=== PATIENT | male | born 1955 | race Caucasian/White ===

== ENCOUNTER → 2020-04-19 06:18 | Outpatient (CLI) | payer MEDICARE, MEDICAID, SELFPAY ==
--- NOTE | 2020-04-19 13:06 | STRESSREP ---
Stress Test Report Exercise myocardial perfusion stress test. 64-year-old male with a history of chest pain. Stress protocol: Resting EKG demonstrates normal sinus rhythm with a rate of 61 bpm normal intervals are noted resting blood pressure is 148/82 mmHg. The patient exercised according to regular Solomon protocol for 7 minutes and 38 seconds. The maximum heart rate attained was 153 bpm which was 96% of max impacted heart rate the maximum workload was 9.5 metabolic equivalents. Patient maintained sinus rhythm throughout the recording. At rest there were no ST or T wave changes noted suggest ischemia peak exercise upsloping ST changes only were noted with no meet the criteria for ischemia. No clinical angina was noted. The test was terminated due to leg discomfort and the target heart rate being achieved. The resting blood pressure was 148/82 with a peak blood pressure 180/102 mmHg. No clinical angina was noted. Myocardial perfusion protocol. 11.7 mCi of technetium 99m sestamibi was injected at rest. The patient exercised according to regular Solomon protocol for 7-1/2 minutes at peak exercise 33.1 mCi of technetium 99m sestamibi was injected stress images were obtained stress and rest images were reconstructed and compared in the short axis vertical long horizontal long axis. Gated images were also obtained Perfusion SPECT analysis: Review of the stress images demonstrate normal uptake of tracer noted in all areas of the myocardium the resting images similar demonstrate normal uptake of tracer noted in all areas of the myocardium. No areas of reversibility are noted suggest ischemia no previous infarct is noted. Gated SPECT analysis: The gated ejection fraction is 73%. Conclusion: Normal exercise myocardial perfusion stress test at a moderate to high workload. Preserved ejection fraction.
== END ==
PROVIDERS: PCP Internal Medicine
DX: I25.10 Atherosclerotic heart disease of native coronary artery without angina pectoris (principal); I25.84 Coronary atherosclerosis due to calcified coronary lesion; Z13.6 Encounter for screening for cardiovascular disorders; R06.02 Shortness of breath
CPT/HCPCS: 78452; 93017; A9500; A4216

== ENCOUNTER → 2022-09-01 | Outpatient (CLI) | payer MEDICARE, MEDICAID, SELFPAY ==
[2022-09-01 12:43] LABS: AST(SGOT) 15 U/L (15-37); Alanine Aminotransfer ALT/SGPT 33 U/L (16-61); Albumin, Serum 3.9 g/dL (3.2-5.0); Alkaline Phosphatase 69 U/L (45-117); Bilirubin, Direct 0.12 mg/dL (0.00-0.30); Cholesterol 240 mg/dL (200); Globulin 3.6 g/dL (2.2-4.2); High Density Lipoprotein 35 mg/dL; Protein, Total 7.5 g/dL (6.4-8.2); Triglycerides 243 mg/dL; Very Low Density Lipoprotein 49 mg/dL (5-40)
== END | disposition home or self-care (01) ==
LOC: LAB 11:15
PROVIDERS: PCP Internal Medicine; Visit Provider Internal Medicine Cardiovascular Disease
DX: I71.40 Abdominal aortic aneurysm, without rupture, unspecified (principal); E78.5 Hyperlipidemia, unspecified
CPT/HCPCS: 36415; 80061; 80076

== ENCOUNTER → 2022-09-16 | Outpatient (CLI) | payer MEDICARE, MEDICAID, SELFPAY ==
--- NOTE | 2022-09-16 09:44 | STE_ITS ---
Reason For Study: CAD/ASHD Stress Results Protocol: Solomon Protocol Maximum Predicted HR: 156 bpm Target HR: 133 bpm % Maximum Predicted HR: 92 % DurationHeart Rate Stage (mm:ss) (bpm) BP Comment BASELINE 62 124/72 STAGE 1 3:00 97 162/82 STAGE 2 3:00 126 172/84 STAGE 3 2:00 144 174/90KNEE DISCOMFORT, (BAD KNEES) RECOVERY 83 156/86 Stress Duration: 8:00 mm:ss Maximum Stress HR: 144 bpm Baseline Echocardiogram Findings Stress Echo Wall motion Data Resting WM Intermediate WM Stress WM ECHO/Stress Test Echo w/o Contrast Interpretation Summary Exercise stress echo. 66-year-old man with a history of coronary artery disease. Stress protocol: Resting EKG demonstrates sinus rhythm with a rate of 61 bpm normal intervals ar e noted resting blood pressure is 124/72. The patient exercised according to regular Solomon protocol f or total duration of 8 minutes completing 2 minutes into stage III of the Solomon protocol. The maximu m heart rate attained was 176 bpm which was 112% of maximum predicted heart rate the maximum workload was 10.1 metabolic equivalents. At rest there were no ST or T wave changes noted to suggest ischem ia. At peak exercise there was approximately 1.[address] depression noted with exertion. No chest pain was noted the test was terminated due to knee pain. The peak blood pressure was 178 /90 mmHg. Stress echocardiogram. Resting echocardiographic evaluation demonstrated an eje ction fraction of 60% with no wall motion abnormalities. At peak exercise there was thickening of all hernandez reduction of the ventricular cavity size and peaking of ejection fraction of 70%. No wall mo tion abnormalities were noted. Conclusion: Normal exercise stress echo with no EKG or echocardiographic criteria for ische maddy at a moderate workload to high workload. Good functional capacity. Ordering Physician: Patrick Mckinley Referring Physician: Patrick Mckinley Performed By: Jessica Lang, RDCS, RVT
== END | disposition home or self-care (01) ==
LOC: CVS 09:41
PROVIDERS: PCP Internal Medicine; Referring Provider Internal Medicine Cardiovascular Disease; Visit Provider Internal Medicine Cardiovascular Disease
DX: I25.10 Atherosclerotic heart disease of native coronary artery without angina pectoris (principal); I25.84 Coronary atherosclerosis due to calcified coronary lesion
CPT/HCPCS: 93017; 93350

== ENCOUNTER 2023-05-10 06:46 | Outpatient (CLI) | payer MEDICARE, MEDICAID, SELFPAY ==
[2023-05-10 07:39] LABS: Absolute Lymphocyte Count 3.38 X10^3/uL (0.83-4.51); Absolute Neutrophil Count 4.4 X10^3/uL (2.0-7.7); Basophil# 0.08 X10^3/uL; Basophil% 0.9 % (0-1); Eosinophil# 0.11 X10^3/uL; Eosinophils% 1.3 % (0-5); Hematocrit 48.6 % (40-54); Hemoglobin 15.8 g/dL (13.0-16.5); Lymphocyte # 3.38 X10^3/ul (0.83-4.51); Lymphocyte % 39.6 % (19-41); Mean Corp Hgb Conc 32.5 g/dL (32-36); Mean Corpuscular Hgb 29.8 pg (27.0-32.0); Mean Corpuscular Volume 91.5 fL (80-94); Mean Platelet Vol. 11.1 fl (6.2-12.0); Monocyte# 0.58 X10^3/uL; Monocyte% 6.8 % (0-10); NRBC Flagged by Analyzer 0 % (0-5); Neutrophil # 4.36 X10^3/uL (2.7-7.7); Neutrophil % 51.2 % (47-70); Platelet Count 194 K/mm3 (150-450); RBC Distribution Width CV 12.5 % (11.6-14.6); RBC Distribution Width SD 42.1 fl (35.1-43.9); Red Blood Count 5.31 M/mm3 (4.6-6.2); White Blood Count 8.5 K/mm3 (4.4-11.0)
[2023-05-10 08:19] LABS: AST(SGOT) 20 U/L (15-37); Alanine Aminotransfer ALT/SGPT 30 U/L (16-61); Alkaline Phosphatase 75 U/L (45-117); Anion Gap 7 (5-15); BUN 16 mg/dL (7-18); BUN/Creat Ratio 13.4 RATIO (10-20); Bilirubin, Direct 0.18 mg/dL (0.00-0.30); Calcium,Total 9.3 mg/dL (8.5-10.1); Chloride 105 mmol/L (98-107); Cholesterol 273 mg/dL (200); Creatinine, Serum 1.19 mg/dL (0.70-1.30); EST Glomerular Filtration Rate 65 mL/min (>60); Est Glom Filt Rate - Afr Amer 79 mL/min (>60); Globulin 4.2 g/dL (2.2-4.2); Glucose 112 mg/dL (74-106); High Density Lipoprotein 41 mg/dL; PSA,Total - Annual Screen 0.37 ng/mL (0.00-4.00); Potassium 4.1 mmol/L (3.5-5.1); Protein, Total 8.2 g/dL (6.4-8.2); Sodium Level 139 mmol/L (136-145); Thyroid Stim Hormone (TSH) 3.51 uIU/mL (0.358-3.74); Triglycerides 178 mg/dL; Very Low Density Lipoprotein 36 mg/dL (5-40)
[2023-05-10 08:54] LABS: Vitamin D,25 Hydroxy 32.9 ng/mL
== END 2023-05-10 23:59 | disposition home or self-care (01) ==
LOC: LAB 06:51
PROVIDERS: PCP Internal Medicine; Referring Provider Internal Medicine; Visit Provider Internal Medicine
DX: E78.5 Hyperlipidemia, unspecified (principal); I71.40 Abdominal aortic aneurysm, without rupture, unspecified; Z12.5 Encounter for screening for malignant neoplasm of prostate; I65.29 Occlusion and stenosis of unspecified carotid artery; I25.10 Atherosclerotic heart disease of native coronary artery without angina pectoris; I25.84 Coronary atherosclerosis due to calcified coronary lesion; I10 Essential (primary) hypertension; E55.9 Vitamin D deficiency, unspecified
CPT/HCPCS: 36415; 80053; 80061; 82248; 82306; 84153; 84443; 85025; G0103

== ENCOUNTER → 2023-10-22 | Outpatient (CLI) | payer MEDICARE, MEDICAID, SELFPAY ==
[2023-10-22 08:50] LABS: AST(SGOT) 22 U/L (15-37); Alanine Aminotransfer ALT/SGPT 25 U/L (16-61); Albumin, Serum 3.7 g/dL (3.2-5.0); Alkaline Phosphatase 62 U/L (45-117); Bilirubin, Direct 0.13 mg/dL (0.00-0.30); Cholesterol 146 mg/dL (200); Globulin 3.6 g/dL (2.2-4.2); High Density Lipoprotein 36 mg/dL; Protein, Total 7.3 g/dL (6.4-8.2); Triglycerides 109 mg/dL; Very Low Density Lipoprotein 22 mg/dL (5-40)
== END | disposition home or self-care (01) ==
LOC: LAB 07:42
PROVIDERS: PCP Internal Medicine; Referring Provider Physician Assistant Medical; Visit Provider Physician Assistant Medical
DX: I65.29 Occlusion and stenosis of unspecified carotid artery (principal); E78.5 Hyperlipidemia, unspecified; I25.10 Atherosclerotic heart disease of native coronary artery without angina pectoris; I25.84 Coronary atherosclerosis due to calcified coronary lesion
CPT/HCPCS: 36415; 80061; 80076

== ENCOUNTER → 2024-06-16 | Outpatient (CLI) | payer MEDICARE, MEDICAID, SELFPAY ==
--- NOTE | 2024-06-16 14:06 | STRESSREP_ITS ---
Stress Test Report Exercise myocardial perfusion stress test. 68-year-old man with a history of chest pain Stress protocol: Resting EKG demonstrates normal sinus rhythm with a rate of 64 bpm resting blood pressure is 132/88 mmHg. The patient exercised according to the regular Solomon protocol for a total duration of 9 minutes attaining a maximum heart rate of 153 bpm which was 99% of maximum predicted heart rate; the maximum workload was 10.1 metabolic equivalents. At rest there were no ST or T wave changes noted to suggest ischemia and at peak exercise upsloping ST changes only were noted which did not meet the criteria for ischemia. No clinical angina was noted the test was terminated due to the target heart rate being achieved/fatigue. The peak b lood pressure was 182/94 mmHg. Rate-pressure product was 25,000. Myocardial perfusion protocol. 13.2 mCi of technetium 99m sestamibi was injected at rest. The patient exercised according to regular Solomon protocol for total duration of 9 minutes and at peak exercise 42.3 mCi of technetium 99m sestamibi was injected stress images were obtained stress and rest images were reconstructed in comparing the short axis vertical long and horizontal long axis. Gated images were also obtained. Perfusion SPECT analysis: Review of the stress images demonstrate normal uptake of tracer noted in all areas of the myocardium. The resting images similarly demonstrate normal uptake of tracer noted in all areas of the myocardium. No areas of reversibility are noted to suggest ischemia no previous infarct was noted. Gated SPECT analysis: The gated ejection fraction is 67%. Conclusion: Normal exercise myocardial perfusion stress test at a high workload Preserved ejection fraction.
== END | disposition home or self-care (01) ==
LOC: CVS 06:27
PROVIDERS: PCP Internal Medicine; Referring Provider Nurse Practitioner Family; Visit Provider Nurse Practitioner Family
DX: R07.9 Chest pain, unspecified (principal); I65.29 Occlusion and stenosis of unspecified carotid artery; I25.10 Atherosclerotic heart disease of native coronary artery without angina pectoris; I25.84 Coronary atherosclerosis due to calcified coronary lesion; I10 Essential (primary) hypertension; E78.2 Mixed hyperlipidemia
CPT/HCPCS: 78452; 93017; A9500; A4216

== ENCOUNTER → 2024-06-26 | Outpatient (CLI) | payer MEDICARE, MEDICAID, SELFPAY ==
[2024-06-26 10:26] LABS: Absolute Lymphocyte Count 3.09 X10^3/uL (0.83-4.51); Absolute Neutrophil Count 3.9 X10^3/uL (2.0-7.7); Basophil# 0.06 X10^3/uL; Basophil% 0.8 % (0-1); Eosinophil# 0.07 X10^3/uL; Eosinophils% 0.9 % (0-5); Hematocrit 48.1 % (40-54); Hemoglobin 16.3 g/dL (13.0-16.5); Lymphocyte # 3.09 X10^3/ul (0.83-4.51); Lymphocyte % 40.6 % (19-41); Mean Corp Hgb Conc 33.9 g/dL (32-36); Mean Corpuscular Hgb 30.2 pg (27.0-32.0); Mean Corpuscular Volume 89.1 fL (80-94); Mean Platelet Vol. 10.8 fl (6.2-12.0); Monocyte# 0.52 X10^3/uL; Monocyte% 6.8 % (0-10); NRBC Flagged by Analyzer 0 % (0-5); Neutrophil # 3.86 X10^3/uL (2.7-7.7); Neutrophil % 50.8 % (47-70); Platelet Count 183 K/mm3 (150-450); RBC Distribution Width CV 12.3 % (11.6-14.6); RBC Distribution Width SD 40.4 fl (35.1-43.9); White Blood Count 7.6 K/mm3 (4.4-11.0)
[2024-06-26 11:33] LABS: Vitamin D,25 Hydroxy 25.7 ng/mL
[2024-06-26 11:36] LABS: ALB/GLOB Ratio 1.1 RATIO (0.9-2.4); AST(SGOT) 19 U/L (15-37); Alanine Aminotransfer ALT/SGPT 32 U/L (16-61); Albumin, Serum 4.1 g/dL (3.2-5.0); Alkaline Phosphatase 66 U/L (45-117); Anion Gap 4 (5-15); BUN 19 mg/dL (7-18); BUN/Creat Ratio 18.4 RATIO (10-20); Calcium,Total 9.2 mg/dL (8.5-10.1); Chloride 108 mmol/L (98-107); Cholesterol 279 mg/dL (200); Creatinine, Serum 1.03 mg/dL (0.70-1.30); EST Glomerular Filtration Rate 77 mL/min (>60); Est Glom Filt Rate - Afr Amer 93 mL/min (>60); Globulin 3.8 g/dL (2.2-4.2); Glucose 103 mg/dL (74-106); High Density Lipoprotein 39 mg/dL; Magnesium 2.2 mg/dL (1.6-2.6); PSA,Total - Annual Screen 0.38 ng/mL (0.00-4.00); Potassium 4.5 mmol/L (3.5-5.1); Protein, Total 7.9 g/dL (6.4-8.2); Sodium Level 136 mmol/L (136-145); Triglycerides 165 mg/dL; Very Low Density Lipoprotein 33 mg/dL (5-40)
== END | disposition home or self-care (01) ==
PROVIDERS: PCP Internal Medicine; Referring Provider Internal Medicine; Visit Provider Internal Medicine
DX: Z12.5 Encounter for screening for malignant neoplasm of prostate (principal); M17.0 Bilateral primary osteoarthritis of knee; I65.29 Occlusion and stenosis of unspecified carotid artery; I25.10 Atherosclerotic heart disease of native coronary artery without angina pectoris; I25.84 Coronary atherosclerosis due to calcified coronary lesion; I10 Essential (primary) hypertension; I71.43 Infrarenal abdominal aortic aneurysm, without rupture; E78.2 Mixed hyperlipidemia; E55.9 Vitamin D deficiency, unspecified
CPT/HCPCS: 36415; 80053; 80061; 82306; 83735; 84153; 84443; 85025; G0103

== ENCOUNTER → 2024-12-05 | Outpatient (CLI) | payer MEDICARE, MEDICAID, SELFPAY ==
--- NOTE | 2024-12-05 08:56 | ECHOD_ITS ---
Reason For Study Reason For Study: CAD/ASHD Procedure This was a 2D Doppler, Color Flow transthoracic echocardiogram. Exam performed in department. Left Ventricle Normal LV size. Left ventricular systolic function is normal. The left ventricular ejection fraction is 65 %. No regional wall motion abnormalities noted. Right Ventricle Normal RV size. Normal systolic function. Atria Normal left atrium. Normal right atrium. Mitral Valve Normal mitral valve. Tricuspid Valve Normal tricuspid valve. Mild tricuspid valve insufficiency. Pulmonary artery systolic pressure is 20 mmHg. Aortic Valve Normal aortic valve. Pulmonic Valve Normal pulmonic valve. Great Vessels Normal aortic root. The pulmonary artery is normal size. Normal inferior vena cava. Pericardium/Pleural No pericardial effusion. MMode/2D Measurements & Calculations LVIDd: 4.6 cm IVSd: 1.2 cm Ao root diam: 3.4 cm LVIDs: 2.9 cm LVPWd: 1.1 cm RVDd: 3.6 cm FS: 36.3 % LAV(MOD-bp): 42.7 ml LVAd ap4: 26.6 cm2 SV(MOD-sp4): 47.1 ml LAV(MOD-bp) Indexed: 20.5 ml/m2 LVLd ap4: 7.8 cm SI(MOD-sp4): 22.6 ml/m2 LAV(MOD-sp2): 45.8 ml EDV(MOD-sp4): 73.4 ml LAV(MOD-sp4): 38.2 ml EDV(sp4-el): 76.8 ml LVAs ap4: 14.6 cm2 LVLs ap4: 6.7 cm ESV(MOD-sp4): 26.3 ml ESV(sp4-el): 26.9 ml EF(MOD-sp4): 64.1 % EF(sp4-el): 65.0 % SV(sp4-el): 50.0 ml LA A4 area: 15.7 cm2 LA dimension(2D): 4.2 cm RA A4 area: 16.8 cm2 TAPSE: 2.0 cm Time Measurements MV dec time: 0.25 sec Doppler Measurements & Calculations MV E max robert: 79.4 cm/sec Lat Peak E' Rboert: 10.6 cm/sec Med Peak E' Robert: 6.9 cm/sec MV A max robert: 79.4 cm/sec E/E' lat: 7.5 E/E' med: 11.5 MV E/A: 1.0 MV V2 max: 96.0 cm/sec MV P1/2t max robert: 96.5 cm/sec Ao V2 max: 152.9 cm/sec MV max P.7 mmHg MV P1/2t: 99.4 msec Ao max P.4 mmHg MV V2 mean: 49.5 cm/sec Ao V2 mean: 98.9 cm/sec MV mean P.2 mmHg MV dec slope: 284.5 cm/sec2 Ao mean P.6 mmHg MV V2 VTI: 36.1 cm MVA(P1/2t): 2.2 cm2 Ao V2 VTI: 34.2 cm AV (velocity ratio): 0.83 LV V1 max: 132.2 cm/sec PA V2 max: 120.7 cm/sec TR max robert: 194.7 cm/sec LV V1 max P.0 mmHg PA V2 mean: 80.4 cm/sec TR max P.2 mmHg LV V1 mean P.7 mmHg LV V1 mean: 89.5 cm/sec LV V1 VTI: 28.4 cm ECHO/Echo Complete Interpretation Summary Normal LV size. Left ventricular systolic function is normal. The left ventricular ejection fraction is 65 %. Structurally normal valves. Ordering Physician: Patrick Mckinley Referring Physician: Patrick Mckinley Performed By: Myles Stone RCS
== END | disposition home or self-care (01) ==
LOC: CVS 08:50
PROVIDERS: PCP Internal Medicine; Referring Provider Internal Medicine Cardiovascular Disease; Visit Provider Internal Medicine Cardiovascular Disease
DX: I25.10 Atherosclerotic heart disease of native coronary artery without angina pectoris (principal)
CPT/HCPCS: 93306

== ENCOUNTER 2025-05-27 20:52 | Emergency (ER) | payer MEDICARE, MEDICAID, SELFPAY ==
[2025-05-27 20:53] VITALS: BP 151/93; PULSE 64; RESP 18; TEMP 36.3; O2SAT 99; BMI 27.5
--- NOTE | 2025-05-27 21:21 | ED.VIS.BACK ---
HPI History of Present Illness Chief Complaint: Back Detail of Chief Complaint: Back pain Informant: patient Onset/Context/Timing Current Severity: 12/28 Narrative Narrative: Patient presents with back pain that started yesterday initially when he threw some water into the back of his pickup truck. [place] a twinge in his back. Today he is having increased pain in his low back. He is worried because he had a AAA repair 10 years ago. He wants to make sure his aneurysm is okay. Patient denies any pain rating down the legs. He does have history of sciatica and some chronic back pain issues. Denies urinary symptoms. No history of kidney stones [facility] Medical History (Updated 05/27/25 @ 23:[address] Fawad Ceballos, DO) Marijuana use Peptic ulcer hemorrhagic (1979) Anxiety and depression Coronary artery calcification Tobacco abuse (2011) Osteoarthritis Tubular adenoma of colon Essential (primary) hypertension Hyperlipidemia Abdominal aortic aneurysm (AAA) Home Medications ?Medication ?Instructions ?Recorded ?Last Taken ?Type aspirin 81 mg tablet,delayed 81 mg PO DAILY 07/30/20 Unknown History release cholecalciferol (vitamin D3) 50 50 mcg PO QDAY 07/03/24 Unknown History mcg (2,000 unit) capsule sildenafil 50 mg tablet 50 mg PO DAILY PRN sexual activity 09/13/24 Unknown Rx #30 tabs ezetimibe 10 mg tablet (Zetia) 10 mg PO QDAY #90 tabs 10/26/24 Unknown Rx losartan 50 mg tablet 50 mg PO QDAY #90 tabs 10/26/24 Unknown Rx cyclobenzaprine 10 mg tablet 10 mg PO TID PRN Muscle Spasm #20 05/27/25 Unknown Rx TABLETS hydrocodone-acetaminophen 5-325mg 1 tab PO Q4H PRN PRN Pain 2 days 05/27/25 Unknown Rx 5mg-325mg #14 TABLETS Allergy/AdvReac Type Severity Reaction Status Date / Time evolocumab (From Repatha AdvReac Intermediate Leg aches Verified 05/27/25 20:55 Pushtronex) (Myalgias) Klonryr-ZLV-XlD Reductase AdvReac myalgia Verified 05/27/25 20:55 Inhibitor (Tdihnii-Gpx-Wuh Reductase Inhibitor) Family History Father COPD (chronic obstructive pulmonary disease) Mother Hypertension Brother CAD (coronary artery disease) CABG x 3 Abdominal aortic aneurysm (AAA) Hypertension Other Heart disease Surgical History History of left heart catheterization (05/2015) History of abdominal aortic aneurysm (AAA) repair (06/18/15) Social History Smoking Status: Former smoker quit date: 09/26/11 pack-years: 75 alcohol intake: current alcohol intake frequency: a few times a week Alcohol type: beer details: 12 beers a week substance use type: former substance user Date of last use: H/O IVDU >30 years ago, marijuana and other details: 7 days a week caffeine: Yes (8) Type: coffee ROS ROS ED Review of Systems ROS Unobtainable: other Constitutional Constitutional ED: Reports lethargy; Denies chills, fever(s), sweats or weight loss Eyes Eyes: Denies blurry vision, change in vision or diplopia ENT ENT ED: Denies rhinorrhea or sore throat Cardiovascular Cardiovascular: Denies chest pain, orthopnea or racing heartbeat Respiratory/Chest Respiratory/Chest: Denies cough, dyspnea, dyspnea on exertion, orthopnea or sputum Gastrointestinal Gastrointestinal: Denies abdominal pain, diarrhea, nausea or vomiting Genitourinary Genitourinary ED: Denies dysuria, hematuria or urinary frequency Musculoskeletal Musculoskeletal: Reports back pain; Denies arthralgias, myalgias or neck pain Integumentary Denies abscess, Abrasions or rash Neurologic Neurologic: Denies headache(s) or weakness Psychiatric Psychiatric: Denies anxiety, depression or suicidal thoughts Endocrine Endocrinology: Denies polydipsia, polyphagia or polyuria Hematologic/Lymphatic Hematologic/Lymphatic: Denies easy bleeding, easy bruising or lymphadenopathy Allergic/Immunologic Allergic/Immunologic ED: Denies mouth swelling, tongue swelling or urticaria EXAM Physical Exam Const Vital Signs: 05/27/25 20:53 05/27/25 22:53 Temperature 97.4 F L Temperature Source Temporal Pulse Rate 64 65 Respiratory Rate 18 16 Blood Pressure 151/93 H 166/84 H Blood Pressure Mean 112 111 Pulse Ox 99 96 Oxygen Delivery Method Room Air Room Air Positive well nourished and well developed General Appearance ED: well developed and NAD HEENT Reports TM's clear and moist mucous membranes normocephalic and atraumatic; Negative for trauma or tenderness Tympanic Membrane ED: Yes TM's clear Eyes PERRL and EOMs intact bilaterally General Eye ED: Negative for pale conjunctiva or scleral icterus Neck no lymphadenopathy, supple and no JVD General: Negative for tenderness Chest Wall inspection of chest normal and palpation of chest normal Chest: Negative for tenderness Resp normal respiratory effort and clear to auscultation bilaterally Effort and Inspection: Negative for respiratory distress or pain with movement Auscultation: Negative for rhonchi, wheezes or diminished lung sounds Cardio regular rate, regular rhythm, S1 normal heart sound, S2 normal heart sound and no murmurs Peripheral Pulses: pulses 2+ throughout GI normal to inspection, nondistended, normoactive bowel sounds, soft to palpation, non-tender, non-distended and no masses Back/Spine no CVA tenderness Back/Spine Narrative: Mild diffuse tenderness palpation over the lumbar paraspinal musculature bilaterally. No significant tenderness in the midline. Negative straight leg raises. Deep tendon reflexes plus 2 out of 4 bilaterally at the patella and Achilles. Normal L5 extension Extremity normal to inspection General Extremety ED: Negative for edema General Extremity: Negative for edema Neuro oriented x3, CN's II-XII intact bilaterally, no sensory deficits noted and gait normal Sensorium / Orientation: awake, alert, oriented to person, oriented to place and oriented to time Motor Exam: strength 5/5 throughout and strength abnormal Psych mental status grossly normal Skin no rashes or lesions noted and no wounds MDM MDM Lab Data Labs: Laboratory Results - last 24 hr 05/27/25 05/27/25 19:25 22:27 WBC 9.5 RBC 4.47 L Hgb 13.7 Hct 40.1 MCV 89.7 MCH 30.6 MCHC 34.2 RDW Std Deviation 41.1 RDW Coeff of Pipe 12.6 Plt Count 181 MPV 10.8 Immature Gran % (Auto) 0.100 Neut % (Auto) 45.5 L Lymph % (Auto) 44.5 H [place] % (Auto) 6.9 Eos % (Auto) 2.5 Baso % (Auto) 0.5 Absolute Neuts (auto) 4.3 Absolute Lymphs (auto) 4.21 Nucleated RBC % 0 Sodium 137 Potassium 4.1 Chloride 104 Carbon Dioxide 23.1 Anion Gap 10 BUN 15 Creatinine 1.05 Estim Creat Clear Calc 74.93 Est GFR (MDRD) Non-Af 78 BUN/Creatinine Ratio 14.1 Glucose 123 H Calcium 9.0 Urine Color Yellow Urine Clarity Clear Urine pH 7.0 Ur Specific [place] 1.005 Urine Protein Negative Urine Glucose (UA) Normal Urine Ketones Negative Urine Occult Blood Negative Urine Nitrite Negative Urine Bilirubin Negative Urine Urobilinogen Normal Ur Leukocyte Esterase Negative Urine RBC 0 SEEN Urine WBC 0 SEEN Ur Squamous Epith Cells 0 SEEN Urine Bacteria 0 SEEN Urine Mucus 0 SEEN Discharge Plan Triage Chief Complaint: Back ED Provider: Fawad Ceballos Dx/Rx/DC Orders Clinical Impression: Back pain Instructions: ED Back Sprain/Strain Prescriptions: New hydrocodone-acetaminophen 5-325 mg tablet 1 tab PO Q4H PRN PRN (Reason: Pain) 2 Days Qty: 14 0RF cyclobenzaprine 10 mg tablet 10 mg PO TID PRN (Reason: Muscle Spasm) Qty: 20 0RF No Action aspirin 81 mg tablet,delayed release (DR/EC) 81 mg PO DAILY losartan 50 mg tablet 50 mg PO QDAY Qty: 90 3RF ezetimibe [Zetia] 10 mg tablet 10 mg PO QDAY Qty: 90 3RF cholecalciferol (vitamin D3) 50 mcg (2,000 unit) capsule 50 mcg PO QDAY sildenafil 50 mg tablet 50 mg PO DAILY PRN (Reason: sexual activity) Qty: 30 1RF Primary Care Provider: Barbara Hall Referrals: Barbara Hall MD [[place] [facility] [place]5 [place] Print Language: Latvian
[2025-05-27 21:32] LABS: Hematocrit 40.1 % (40-54); Hemoglobin 13.7 g/dL (13.0-16.5); Immature Granulocytes Count 0.010 X10^3/uL (0.0-0.0); Mean Corp Hgb Conc 34.2 g/dL (32-36); Mean Corpuscular Volume 89.7 fL (80-94); Mean Platelet Vol. 10.8 fl (6.2-12.0); NRBC Flagged by Analyzer 0 % (0-5); Platelet Count 181 K/mm3 (150-450); RBC Distribution Width CV 12.6 % (11.6-14.6); RBC Distribution Width SD 41.1 fl (35.1-43.9); Red Blood Count 4.47 M/mm3 (4.6-6.2); White Blood Count 9.5 K/mm3 (4.4-11.0)
--- OUTSIDE RECORDS SUMMARY | 2025-05-27 21:35 | XMS RPT_ITS | CCD ---
Author Organization [facility] Care Team Providers Care Waste Oil Pumper Name Role Phone DAVONTE, DR CALLI Rodas Primary Care Unavaila ble DAVONTE, DR CALLI Rodas Attending Unavaila ble CHANA, EMILY Pizarro Consulting Unavailable DAVONTE, DR CALLI Rodas Admitting Unavaila ble PROVIDER, UNKNOWN Consulting Unavailable PROVIDER, UNKNOWN Consulting Unavailable DAVONTE, DR CALLI Rodas Attending Unavaila ble CHANA, EMILY Pizarro Consulting Unavailable DAVONTE, DR CALLI Rodas Admitting Unavaila ble DAVONTE, DR CALLI Rodas Primary Care Unavaila ble PROVIDER, UNKNOWN Consulting Unavailable PROVIDER, UNKNOWN Consulting Unavailable Mikhail Green MD Primary Care Provider SALLY ALMONTE Referring Unav ailable GREEN, MIKHAIL Primary Care Unavailable SALLY ALMONTE Attending Unav ailable GEORGINATANSALLY HERNANDEZ Referring Unav ailable GREEN, MIKHAIL Primary Care Unavailable SALLY ALMONTE Attending Unav ailMikhail Wilson MD Primary Care Provider Mikhail Green MD Primary Care Provider Dr. Mikhail Green Primary Care Provider Dr. Mikhail Green Referring Provider Dr. Patrick Mckinley Attending Provider Paige Granger Attending Provider Unavailable Mikhail Green MD Primary Care Provider Blaise Hall MD Primary Care Provider Dr. Blaise Hall Primary Care Provider Dr. Blaise Hall Attending Provider Dr. Blaise Hall Primary Care Provider Dr. Blaise Hall Attending Provider [phone] Mikhail Green Referring Provider Roof PIT SUPERVISOR, PIT SUPERVISOR-C Shaun Page Attending Provider Isabel LIVINGSTON, Blaise Michaels Primary Care Provider Isabel LIVINGSTON, Blaise Michaels Primary Care Provider Isabel LIVINGSTON, Dr. Jimenez Primary Care Provider Isabel LIVINGSTON, Dr. Jimenez Referring Provider Arlen LIVINGSTON, Dr. Nguyen Attending Provider Arlen LIVINGSTON, Dr. Nguyen Referring Provider [phone] Roberto DELAROSA-Kat Loco Attending Provider Arlen, Patrick Attending Unavailable Isabel, Blaise Referring Unavailable Isabel, Blaise Primary Care Unavailable Isabel, Blaise Primary Care Unavailable Roof PIT SUPERVISOR, Shaun H Attending Unavailable Roof PIT SUPERVISOR, Shaun H Referring Unavailable Isabel, Blaise Primary Care Unavailable Blaise Hall Attending Unavailable IsabelBlaise Referring Unavailable Arlen, Patrick Attending Unavailable Arlen, [place] Referring Unavailable Isabel, Blaise Primary Care Unavailable Isabel, Blaise Primary Care Unavailable Arlen, [place] Attending Unavailable Roof PIT SUPERVISOR, Shaun H Consulting Unavailable Roof PIT SUPERVISOR, Shaun H Referring Unavailable Arlen, Patrick Attending Unavailable Isabel, Blaise Primary Care Unavailable Isabel, Blaise Primary Care Unavailable Kat Mejia NP Attending Unavailable Isabel, Blaise Attending Unavailable Isabel, Blaise Primary Care Unavailable ROJAS KETTY D Referring Unavailable ROJAS, KETTY D Attending Unavailable ISABEL, BLAISE M Primary Care Unavailable ROJAS, KETTY D Referring Unavailable ISABEL, BLAISE M Primary Care Unavailable ROJAS, KETTY D Referring Unavailable ISABEL, BLAISE M Primary Care Unavailable ANILA CARRANZA Attending Unavailable ISABEL, BLAISE M Primary Care Unavailable RADHA BRAVO Attending Unavailable ANILA CARRANZA Referring Unavailable ISABEL, BLAISE M Primary Care Unavailable Allergies Allergy Classification Reported Allergen(s) Allergy Type Date of Onset Reaction(s) Facility (7 sources) HMG-CoA reductase inhibitor; Translations: [JLUOJER-KGD-ZI A REDUCTASE INHIBITORS] Drug Intolerance 7 Myalgia [facility] Work Phone: (20 sources) HMG-CoA reductase inhibitor Drug Intolerance 7 Myalgia [facility] Work Phone: (5 sources) Tmirlqx-Fhg-Yzi Reductase Inhibitor Propensity to adverse reactions 3 myalgia [facility] (3 sources) evolocumab; Translations: [evolocumab] Drug Allergy 4 Leg aches (Myalgias) [facility] (1 source) Nhdcosr-Pxl-Ipl Reductase Inhibitor Drug allergy (disorder) 5 [facility] Repository Medications Current Medications Medication Drug Class(es) Dates Sig (Normalized) Sig (Original) aspirin 81 mg delayed release oral tablet (20 sources) Platelet Aggregation Inhibitor, Nonsteroidal Anti-inflammatory Drug Start: 07-30-2020 take 1 tablet by mouth once daily Aspirin 81 mg tablet,delayed release (DR/EC) Active 81 mg PO DAILY July 30, 2020 1:00am Start: 06-23-2015 take 1 tablet by tori th once daily aspirin 81 mg chewable tablet Take 1 tablet by mouth once daily. 30 tablet 3 06/23/2015 Active Comment on above: Take 1 tablet by tori th once daily. cholecalciferol 0.05 mg oral capsule (1 source) Vitamin D Start : 07-03 take 1 capsule by mouth once daily Cholecalciferol (Vitamin D3) 50 mcg (2,000 unit) capsule Active 50 ug PO daily July 03, 2024 1:00am ezetimibe 10 mg oral tablet (10 sources) Dietary Cholesterol Absorption Inhibitor Start : 09-01 End: 11-27 take 1 tablet by mouth once daily Ezetimibe (Zetia) 10 mg tablet Active 10 mg PO daily October 26, 2024 12:00am Comment on above: Take 1 tablet by tori th once daily. iv contrast (will be provided with radiology test) (1 source) Start : 10-15 End: 10-16 inject 1 dose intravenously once iv contrast (will be provided with radiology test) CTA ABD/PEL - No IV access, insert saline lock prior to the sedation, infusion, injection for imaging exam. Discontinue saline lock post exam. If Pt. has a central line or IVAD, may access for administration according to line specific nursing protocol. Once exam is complete flush line and de-access according to line specific nursing protocol in the CT contrast administration guidelines link. 1 Each 0 10/15/2021 10/16/2021 Active Comment on above: CTA ABD/PEL - No IV access, insert saline lock prior to the sedation, infusion, injection for imaging exam. Discontinue saline lock post exam. If Pt. has a central line or IVAD, may access for administration according to line specific nursing protocol. Once exam is complete flush line and de-access according to line specific nursing protocol in the CT contrast administration guidelines link. losartan potassium 50 mg oral tablet (4 sources) Angiotensin 2 Receptor Guido Start : 10-26 take 1 tablet by mouth once daily Losartan 50 mg tablet Active 50 mg PO daily October 26, 2024 12:00am phenylephrine hydrochloride 25 mg/ml ophthalmic solution (1 source) alpha-1 Adrenergic Agonist Start : 08-25 End: 08-25 PHENYLephrine 2.5 % 1 Drop (AK-DILATE, CHANO-SYNEPHRINE) polyethylene glycol 3350 307551 mg / potassium chloride 2970 mg / sodium bicarbonate 6740 mg / sodium chloride 5860 mg / sodium sulfate 77580 mg powder for oral solution (1 source) Osmotic Laxative Start : 11-27 End: 11-27 peg 3350-Electrolytes (GOLYTELY) 236-22.74-6.74 -5.86 gram suspension Indications: Screen for colon cancer Take 4,000 mL by mouth one time only for 1 dose. Refer to printed prep instructions from your provider. 4000 mL 11/27/2024 11/27/2024 Active proparacaine hydrochloride 5 mg/ml ophthalmic solution (1 source) Local Anesthetic Start : 08-25 End: 08-25 proparacaine 0.5 % 1 Drop (ALCAINE) sildenafil 50 mg oral tablet (20 sources) Phosphodiesterase 5 Inhibitor Start : 07-31 End: 09-13 take 1 tablet by mouth once daily as needed Sildenafil 50 mg tablet Active 50 mg PO DAILY as needed for sexual activity September 13, 2024 4:15pm take 1 tablet by tori th once daily as needed sildenafil citrate (SILDENAFIL ORAL) Matt e 1 tablet by mouth once daily as needed. Active sildenafil citra te (SILDENAFIL ORAL) Take by mouth. Active sildenafil citra te (SILDENAFIL ORAL) Take by mouth. 0 Active Comment on above: Take 50 mg once clara y as needed 1 hour before sexual activity; may be taken up to 4 hours before sexual activity Take by mouth. tropicamide 10 mg/ml ophthalmic solution (1 source) Anticholinergic Start: 08-25-2022 End: 08-25-2022 tropicamide 1 % 1 Drop (MYDRIACYL) Completed/Discontinued Medications Medication Drug Class(es) Dates Sig (Normalized) Sig (Original) 1 ml alirocumab 75 mg/ml auto-injector (1 source) PCSK9 Inhibitor Start: 12-08-2023 End: 07-03-2024 Alirocumab (Praluent Pen) 75 mg/mL pen injector Discontinued 75 mg SC Q14D December 08, 2023 12:00am July 03, 2024 8:56am bempedoic acid 180 mg / ezetimibe 10 mg oral tablet (4 sources) Dietary Cholesterol Absorption Inhibitor Start: 10-26-2024 End: 10-26-2024 Bempedoic Acid-Ezetimibe 180-10 mg tablet Discontinued 1 {tbl} PO daily 60 October 26, 2024 12:00am October 26, 2024 11:43am calcium chloride 0.0014 meq/ml / potassium chloride 0.004 meq/ml / sodium chloride 0.103 meq/ml / sodium lactate 0.028 meq/ml injectable solution (1 source) Start: 12-12-2024 End: 12-12-2024 take 30 mL intravenously every hour 30 mL/hr, INTRAVENOUS, CONTINUOUS, Starting on Wed12/12/24 at 1100, Until Wed12/12/24 at 1207, Preprocedure diphenhydrAMINE (1 source) Histamine-1 Receptor Antagonist Start: 12-12-2024 End: 12-12-2024 12.5-50 mg, INTRAVENOUS, DIRECTED, Starting on Wed12/12/24 at 1200, Until Wed12/12/24 at 1559, DOSING DIRECTED BY PHYSICIAN FOR PROCEDURAL SEDATION ONLY, Intraprocedure docosahexaenoic acid/epa (FISH OIL CONCENTRATE ORAL) (2 sources) End: 11-27-2024 docosahexaenoic acid/epa (FISH OIL CONCENTRATE ORAL) Take by mouth. 11/27/2024 Discontinued docosahexaenoic acid/epa (FISH OIL CONCENTRATE ORAL) Take by mouth. Active ergocalciferol, vitamin D2, (VITAMIN D2 ORAL) (2 sources) End: 11-27-2024 ergocalciferol, vitamin D2, (VITAMIN D2 ORAL) Take by mouth. 11/27/2024 Discontinued (Discontinued by Patient) ergocalciferol, vitamin D2, (VITAMIN D2 ORAL) Take by mouth. Active 1 ml evolocumab 140 mg/ml auto-injector (8 sources) PCSK9 Inhibitor Start: 09-02-2023 End: 10-18-2023 Evolocumab (Repatha Sureclick) 140 mg/mL pen injector Discontinued 140 mg SC every 2 weeks September 17, 2023 11:28am October 18, 2023 3:48pm 1 ml fentaNYL 0.05 mg/ml injection (1 source) Opioid Agonist Start: 12-12-2024 End: 12-12-2024 25-100 mcg, INTRAVENOUS, DIRECTED, Starting on Wed12/12/24 at 1200, Until Wed12/12/24 at 1559, DOSING DIRECTED BY PHYSICIAN FOR PROCEDURAL SEDATION ONLY, Intraprocedure ibuprofen 800 mg oral tablet (20 sources) Nonsteroidal Anti-inflammatory Drug Start: 07-30-2020 End: 07-03-2024 take 1 tablet by mouth twice daily as needed for pain Ibuprofen 800 mg tablet Discontinued 800 mg PO TWICE A DAY as needed for pain May 03, 2023 10:23am July 03, 2024 8:56am Comment on above: Take 1 tablet by tori th twice daily as needed for pain. Take with food. lisinopril 5 mg oral tablet (20 sources) Angiotensin Converting Enzyme Inhibitor Start: 07-30-2020 End: 02-08-2023 take 1 tablet by mouth once daily Lisinopril 5 mg tablet Discontinued 5 mg PO DAILY July 30, 2020 1:00am February 08, 2023 8:25am Comment on above: Take 1 tablet by tori once daily. metoprolol tartrate 25 mg oral tablet (20 sources) beta-Adrenergic Guido Start: 06-19-2024 End: 10-26-2024 Metoprolol Tartrate 25 mg tablet Discontinued 12.5 mg PO TWICE A DAY June 19, 2024 1:00am October 26, 2024 10:09am Start: 08-26-2023 End: 06-12-2024 take 1 tablet by mouth twice daily Metoprolol Tartrate 25 mg tablet Discontinued 25 mg PO TWICE A DAY August 26, 2023 9:33am June 12, 2024 12:46pm Start: 11-07-2021 End: 01-28-2023 take 1 tablet by mouth every twelve hours metoprolol tartrate, short acting, (LOPRESSOR) 25 mg tablet Indications: Essential hypertension Take 1 tablet by mouth q 12 HR. 180 tablet 3 11/07/2021 01/28/2023 Discontinued (Discontinued by Patient) Start: 10-01-2020 End: 11-04-2021 take 1 tablet by mouth every twelve hours metoprolol tartrate, short acting, (LOPRESSOR) 25 mg tablet Indications: Essential hypertension Take 1 tablet by mouth q 12 HR. 180 tablet 3 10/01/2020 11/04/2021 Discontinued Start: 07-30-2020 End: 10-26-2022 take 1 tablet by mouth twice daily Metoprolol Tartrate 25 mg tablet Discontinued 25 mg PO TWICE A DAY July 30, 2020 1:00am October 26, 2022 8:22am Comment on above: [facility]. 5 ml midazolam 1 mg/ml injection (1 source) Benzodiazepine Start: 12-13-19 End: 12-13-19 1-5 mg, INTRAVENOUS, DIRECTED, Starting on Wed12/12/24 at 1200, Until Wed12/12/24 at 1559, DOSING DIRECTED BY PHYSICIAN FOR PROCEDURAL SEDATION ONLY, Intraprocedure omeprazole 20 mg delayed release oral capsule (5 sources) Proton Pump Inhibitor Start: 01-06-20 End: 03-20-20 take 1 capsule by mouth once daily before breakfast omeprazole (PRILOSEC) 20 mg capsule Take 1 capsule by mouth daily before breakfast. 30 capsule 1 01/05/2022 03/20/2022 Discontinued (Other) Comment on above: Take [address] [facility] daily before breakfast. RED YEAST RICE ORAL (2 sources) End: 11-28-19 25 RED YEAST RICE ORAL Take by mouth. 11/27/2024 Discontinued (Discontinued by Patient) RED YEAST RICE O RAL Take by mouth. Active rosuvastatin calcium 5 mg oral tablet (5 sources) HMG-CoA Reductase Inhibitor Start: 07-30-2020 End: 07-31-2020 take 1 tablet by mouth once daily Rosuvastatin 5 mg tablet Discontinued 5 mg PO DAILY July 30, 2020 1:00am July 31, 2020 10:02am Problems Active Problems Problem Classification Problem Date Documented Da te Episodic/Chronic Aortic; peripheral; and visceral artery aneurysms (20 sources) Abdominal aortic aneurysm without rupture; Translations: [Abdominal aortic aneurysm, without rupture] Onset: 06-16-2015 Chronic Comment on above: open repair, infrare nal with Left renal transposition 06/18/2015 Blindness and vision defects (5 sources) Visual disturbance; Translations: [Unspecified visual disturbance] Episodic Cataract (1 source) Bilateral senile combined form cataracts of eyes; Translations: [Combined forms of age-related cataract, bilateral] Chronic Coronary atherosclerosis and other heart disease (20 sources) Calcification of coronary artery; Translations: [Atherosclerotic heart disease of [place] coronary artery without angina pectoris] Onset: 04-08-2020 04-08-2020 Chronic Disorders of lipid metabolism (20 sources) Mixed hyperlipidemia; Translations: [Mixed hyperlipidemia] Onset: 06-16-2015 Chronic Essential hypertension (20 sources) Essential hypertension; Translations: [Essential (primary) hypertension] Onset: 06-16-2015 Chronic Glaucoma (1 source) Preglaucoma, unspecified, bilateral; Translations: [Preglaucoma, unspecified] Chronic Immunizations and screening for infectious disease (2 sources) Vaccination needed; Translations: [Encounter for immunization] Episodic Inflammation; infection of eye (except that caused by tuberculosis or sexually transmitteddisease) (1 source) Bilateral punctate keratitis of eyes; Translations: [Punctate keratitis, bilateral] Chronic Occlusion or stenosis of precerebral arteries (10 sources) Carotid artery stenosis; Translations: [Occlusion and stenosis of unspecified carotid artery] Onset: 07-13-2024 10-26-2022 Chronic Osteoarthritis (20 sources) Primary gonarthrosis, bilateral; Translations: [Bilateral primary osteoarthritis of knee] Onset: 06-09-2017 06-09-2017 Chronic Other and unspecified benign neoplasm (4 sources) History of polyp of colon; Translations: [History of colonic polyps] 11-27-2024 Episodic Other male genital disorders (20 sources) Male erectile dysfunction, unspecified; Translations: [Impotence of organic origin] Onset: 05-20-2021 05-20-2021 Chronic Other screening for suspected conditions (not mental disorders or infectious disease) (6 sources) Patient encounter status; Translations: [Encounter for screening for malignant neoplasm of prostate] Onset: 07-19-2024 Episodic Retinal detachments; defects; vascular occlusion; and retinopathy (3 sources) Cholesterol retinal embolus of right eye; Translations: [Partial retinal artery occlusion, right eye] Chronic Unclassified (1 source) APPOINTMENT CANCELLED Unclassified (1 source) History of colonic polyps; Translations: [History of colonic polyps] Onset: 11-27-2024 Unclassified (1 source) 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); Translations: [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)] Onset: 06-16-2021 Past or Other Problems Problem Classification Problem Date Documented Date Episodic/Chronic Abdominal pain (7 sources) Right upper quadrant pain; Translations: [Right upper quadrant pain] Onset: 06-03-2016 Resolved: 12-01-2016 Episodic Adjustment disorders (5 sources) Adjustment disorder with depressed mood; Translations: [Adjustment disorder with depressed mood] Onset: 10-16-2015 Resolved: 05-20-2021 Chronic Coagulation and hemorrhagic disorders (4 sources) Thrombocytopenia due to blood loss; Translations: [Other secondary thrombocytopenia] Onset: 06-22-2015 Resolved: 06-22-2015 06-22-2015 Episodic Fluid and electrolyte disorders (4 sources) Hypovolemia; Translations: [Hypovolemia] Onset: 06-18-2015 Resolved: 06-19-2015 06-16-2021 Episodic Miscellaneous mental health disorders (4 sources) Pain disorder with psychological factor; Translations: [Pain disorder with related psychological factors] Onset: 10-16-2015 Resolved: 06-02-2016 06-02-2016 Chronic Nonspecific chest pain (3 sources) Chest pain; Translations: [Chest pain, unspecified] Onset: 07-13-2024 06-12-2024 Episodic Other and unspecified benign neoplasm (20 sources) Tubular adenoma of colon; Translations: [Benign neoplasm of colon, unspecified] Onset: 12-01-2016 12-01-2016 Episodic Other nervous system disorders (4 sources) Acute postoperative pain; Translations: [Other acute postprocedural pain] Onset: 06-18-2015 Resolved: 11-29-2015 06-16-2021 Episodic Respiratory failure; insufficiency; arrest (adult) (4 sources) Ventilator finding; Translations: [Dependence on respirator [ventilator] status] Onset: 06-18-2015 Resolved: 06-19-2015 06-16-2021 Chronic Substance-related disorders (20 sources) Marijuana user; Translations: [Cannabis use, unspecified, uncomplicated] Onset: 05-20-2021 Episodic Unclassified (2 sources) Patient encounter status 11-27-2024 Results Test Name Value Interpretation Reference Range Facility [facility] 12-14-2024 [facility] Letter Text Normal [facility] [id number] 12-12-2024 [id number] HNO ID: [id number] Author: IVONNE FREDERICK RN Service: ? Author Type: Registered Nurse Type: [id number] Filed: 12/12/2024 12:15 Note Text: The patient received a copy of Colonoscopy discharge instructions that contain information for how to contact the physician who performed the procedure and when to seek medical care. Normal [facility] Colonoscopyon 12-12-2024 Colonoscopy [place] [facility] Gastrointestinal Endoscopy Patient Name: Sally Reis Procedure Date: 12/12/2024 11:30 AM Date of : 1955 Admit Type: Outpatient Age: 69 Gender: Male Note Status: Finalized Procedure: Colonoscopy - screening high risk Indications: High risk colon cancer surveillance: Personal history of adenomatous colonic polyps Providers: Radha Bravo MD Patient Profile: Refer to note in patient chart for documentation of history and physical. Last Colonoscopy: 2019. Referring Physician: Anila Carranza (Referring ) Medicines: Midazolam 5 mg IV, Fentanyl 100 micrograms IV, Diphenhydramine 50 mg IV Complications: No immediate complications. Requesting Provider: Procedure: Pre-Anesthesia Assessment: - Prior to the procedure, a History and Physical was performed, and patient medications and allergies were reviewed. The patient is competent. The risks and benefits of the procedure and the sedation options and risks were discussed with the patient. All questions were answered and informed consent was obtained. Patient identification and proposed procedure were verified by the physician in the pre-procedure area. Mental Status Examination: alert and oriented. Airway Examination: normal oropharyngeal airway and neck mobility. Respiratory Examination: clear to auscultation. CV Examination: normal. Prophylactic Antibiotics: The patient does not require prophylactic antibiotics. Prior Anticoagulants: The patient has taken no anticoagulant or antiplatelet agents. ASA Grade Assessment: II - A patient with mild systemic disease. After reviewing the risks and benefits, the patient was deemed in satisfactory condition to undergo the procedure. The anesthesia plan was to use moderate sedation / analgesia (conscious sedation). Immediately prior to administration of medications, the patient was re-assessed for adequacy to receive sedatives. The heart rate, respiratory rate, oxygen saturations, blood pressure, adequacy of pulmonary ventilation, and response to care were monitored throughout the procedure. The physical status of the patient was re-assessed after the procedure. After I obtained informed consent, the scope was passed under direct vision. Throughout the procedure, the patient's blood pressure, pulse, and oxygen saturations were monitored continuously. The Colonoscope was introduced through the anus and advanced to the cecum, identified by the appendiceal orifice, ileocecal valve and palpation. The colonoscopy was performed without difficulty. The patient tolerated the procedure well. The quality of the bowel preparation was adequate to identify polyps greater than 5 mm in size. The appendiceal orifice and the rectum were photographed. Moderate Sedation: The administration of moderate sedation was initiated at 11:41. Moderate (conscious) sedation was personally administered by the endoscopist. The following parameters were monitored: oxygen saturation, heart rate, blood pressure, respiratory rate, EKG, adequacy of pulmonary ventilation, and response to care. Total physician intraservice time was 17 minutes. Findings: The perianal and digital rectal examinations were normal. Non-bleeding internal hemorrhoids were found. Impression: - Non-bleeding internal hemorrhoids. - No specimens collected. Recommendation: - Repeat colonoscopy in 5 years for surveillance for history of colon polyps. - Return to referring provider PRN. - Patient has a contact number available for emergencies. The signs and symptoms of potential delayed complications were discussed with the patient. Return to normal activities tomorrow. Written discharge instructions were provided to the patient. - Continue present medications. - Resume previous diet. Procedure Code(s): --- Professional --- 87947, Colonoscopy, flexible; diagnostic, including collection of specimen(s) by brushing or washing, when performed (separate procedure) 62076, 59, Moderate sedation services provided by the same physician or other qualified health healthcare business analyst performing the diagnostic or therapeutic service that the sedation supports, requiring the presence of an independent trained observer to assist in the monitoring of the patient's level of consciousness and physiological status; initial 15 minutes of intraservice time, patient age 5 years or older Diagnosis Code(s): --- Professional --- K64.8, Other hemorrhoids Z86.0101, Personal history of adenomatous and serrated colon polyps Z12.11, Encounter for screening for malignant neoplasm of colon CPT copyright 2020 [employer]. All rights reserved. The codes documented in this report are preliminary and upon client strategist review may be revised to meet current compliance requirements. Attending Participation: I personally performed the entire procedure. Scope In: 11:48:3 (more content not included)... Normal [facility] Colonoscopy Study observatio non 12-12-2024 [facility] Gastrointestinal Endoscopy Patient Name: Sally Reis Procedure Date: 12/12/2024 11:30 AM Date of : 1955 Admit Type: Outpatient Age: 69 Gender: Male Note Status: Finalized Procedure: Colonoscopy - screening high risk Indications: High risk colon cancer surveillance: Personal history of adenomatous colonic polyps Providers: Radha Bravo MD Patient Profile: Refer to note in patient chart for documentation of history and physical. Last Colonoscopy: 2019. Referring Physician: Anila Carranza (Referring ) Medicines: Midazolam 5 mg IV, Fentanyl 100 micrograms IV, Diphenhydramine 50 mg IV Complications: No immediate complications. Requesting Provider: Procedure: Pre-Anesthesia Assessment: - Prior to the procedure, a History and Physical was performed, and patient medications and allergies were reviewed. The patient is competent. The risks and benefits of the procedure and the sedation options and risks were discussed with the patient. All questions were answered and informed consent was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 [address] Triglyceride [Mass/Vol] 165 mg/dL Normal [facility] Comment on above: Result Comment: The drugs N-Acetylcysteine and Metamizole may falsely depress this assay. Serum Triglycerides Reference Interval Normal <150 mg/dL Borderline high 150 - 199 mg/dL High 200 - 499 mg/dL Very High > or = 500 mg/dL Performed By: #### L 506.1000, L501.5200, L501.9910, L501.9520, L500.4050, L500.4100, L100.0100 #### [facility] [address] [place], [address] Magnesiumon 06-26-2024 Magnesium [Mass/Vol] 2.2 mg/dL Normal 1.6-2.6 [facility] Comment on above: Performed By: #### L 506.1000, L501.5200, L501.9910, L501.9520, L500.4050, L500.4100, L100.0100 #### [facility] [address] [place], [place], [id number] PSA,Total - Annual Screenon 06-26-2024 PSA,TOT SCREEN 0.38 ng/mL Normal 0.00-4.00 [facility] Comment on above: Result Comment: This test was performed using the TPSA assay method for the [employer] chemistry system. Values obtained with different assay methods cannot be used interchangably. When changing PSA assays in the course of monitoring a patient, additional sequential testing should be carried out to confirm baseline values. Performed By: #### L 506.1000, L501.5200, L501.9910, L501.9520, L500.4050, L500.4100, L100.0100 #### [facility] [address] [facility] [place], [place], [id number] Thyroid Stim Hormone (TSH)on 06-26-2024 TSH 3.140 uIU/mL Normal 0.358-3.740 [facility] Comment on above: Performed By: #### L 506.1000, L501.5200, L501.9910, L501.9520, L500.4050, L500.4100, L100.0100 #### [facility] [address] [place], [place], [id number] Vitamin D,25 Hydroxyon 06-26 Vitamin D 25-OH 25.7 ng/mL Normal [facility] Comment on above: Result Comment: Reta min D 25(OH) Status Range Deficiency <20 ng/mL (50nmol/L) Insufficiency 20 - 30 ng/mL (50 - 75 nmol/L) Sufficiency 30 - 100 ng/mL (75 - 250 nmol/L) Toxicity >100 ng/mL (>250 nmol/L) Performed By: #### L 506.1000, L501.5200, L501.9910, L501.9520, L500.4050, L500.4100, L100.0100 #### [facility] [address] [place], [address] Stress Reporton 06-16-2024 Stress Report [facility] [address] [place] [address] MR#: [id number] Acct: [id number] Name: SALLY REIS Rep #: [id number] : 1955 68 From: Patrick Mckinley MD Primary Care: Dr. Blaise Hall MD Status: REG CLI Referring Dr: Shaun Lang NP PIT SUPERVISOR-C Sex: M C Stress Test Report Exercise myocardial perfusion stress test. 68-year-old man with a history of chest pain Stress protocol: Resting EKG demonstrates normal sinus rhythm with a rate of 64 bpm resting blood pressure is 132/88 mmHg. The patient exercised according to the regular Solomon protocol for a total duration of 9 minutes attaining a maximum heart rate of 153 bpm which was 99% of maximum predicted heart rate; the maximum workload was 10.1 metabolic equivalents. At rest there were no ST or T wave changes noted to suggest ischemia and at peak exercise upsloping ST changes only were noted which did not meet the criteria for ischemia. No clinical angina was noted the test was terminated due to the target heart rate being achieved/fatigue. The peak blood pressure was 182/94 mmHg. Rate-pressure product was 25,000. Myocardial perfusion protocol. 13.2 mCi of technetium 99m sestamibi was injected at rest. The patient exercised according to regular Solomon protocol for total duration of 9 minutes and at peak exercise 42.3 mCi of technetium 99m sestamibi was injected stress images were obtained stress and rest images were reconstructed in comparing the short axis vertical long and horizontal long axis. Gated images were also obtained. Perfusion SPECT analysis: Review of the stress images demonstrate normal uptake of tracer noted in all areas of the myocardium. The resting images similarly demonstrate normal uptake of tracer noted in all areas of the myocardium. No areas of reversibility are noted to suggest ischemia no previous infarct was noted. Gated SPECT analysis: The gated ejection fraction is 67%. Conclusion: Normal exercise myocardial perfusion stress test at a high workload Preserved ejection fraction. 06/16/24 1408 Date [place] CC: NELSON Lang; Dr. Blaise Hall MD Date Dictated: 06/16/241405 Date Transcribed: 06/16/241405 Editorial Cartoonist: [place] Signed Normal [facility] Basophil percentageOrdered B y: Chika Bloom on 10-22-2023 Bilirubin [Mass/Vol] 0.60 mg/dL 0.20-1.00 [facility] Comment on above: For patients on eltr ombopag therapy, use of Dimension [place] TBIL is not recommended. Cholesterol [Mass/Vol] 146 mg/dL <200 [facility] Comment on above: <200 mg/dL Desirable 200-240 mg/dL Borderline >240 mg/dL High Risk Protein [Mass/Vol] 7.3 g/dL 6.4-8.2 [facility] Triglyceride [Mass/Vol] 109 mg/dL <199 [facility] Comment on above: The drugs N-Acetylcy steine and Metamizole may falsely depress this assay.Serum Triglycerides Reference Interval Normal <150 mg/dL Borderline high 150 - 199 mg/dL High 200 - 499 mg/dL Very High > or = 500 mg/dL Direct bilirubinOrdered By: Chika Bloom on 10-22-2023 Bilirubin.direct [Mass/Vol] 0.13 mg/dL 0.00-0.30 [facility] - Chemistry and C hemistry - challengeOrdered By: Chika Bloom on 10-22-2023 ALP [Catalytic activity/Vol] 62 U/L 45-117 [facility] ALT [Catalytic activity/Vol] 25 U/L 16-61 [facility] Cholesterol in HDL [Mass/Vol] 36 mg/dL >40 [facility] Comment on above: The drugs N-Acetylcy steine and Metamizole may falsely depress this assay. Reference Range HDL <40 mg/dL Low HDL Cholesterol HDL >or= 60 mg/dL High HDL Cholesterol Cholesterol in LDL [Mass/Vol] 88 mg/dL 0-130 [facility] Globulin (S) [Mass/Vol] 3.6 g/dL 2.2-4.2 [facility] No Panel InformationOrdered By: Chika Bloom on 10-22-2023 VLDL Cholesterol 22 mg/dL 5-40 [facility] Thin prep Papanicolaou smear with manual screeningOrdered By: Chika Bloom on 10-22-2023 Thin prep Papanicolaou smear with manual screening 3.7 g/dL 3.2-5.0 [facility] Thin prep Papanicolaou smear with manual screening 22 U/L 15-37 [facility] Absolute lymphocyte countOrd ered By: Blaise Hall on 05-10-2023 Lymphocytes Auto (Unsp spec) [#/Vol] 3.38 10*3/uL 0.83-4.51 [facility] Basophil percentageOrdered B y: Blaise Hall on 05-10-2023 Basophils/100 WBC (Bld) 0.9 % 0-1 [facility] Bilirubin [Mass/Vol] 0.80 mg/dL 0.20-1.00 [facility] Comment on above: For patients on eltr ombopag therapy, use of Dimension [place] TBIL is not recommended. Chloride [Moles/Vol] 105 mmol/L 98-107 [facility] Cholesterol [Mass/Vol] 273 mg/dL <200 [facility] Comment on above: <200 mg/dL Desirable 200-240 mg/dL Borderline >240 mg/dL High Risk Eosinophils/100 WBC (Bld) 1.3 % 0-5 [facility] Glucose [Mass/Vol] 112 mg/dL 74-106 [facility] Comment on above: Fasting Glucose resu lt from 100 to 125 mg/dL suggests IMPAIRED HOMEOSTASIS per A.D.A. criteria. Neutrophils (Bld) [#/Vol] 4.4 10*3/uL 2.0-7.7 [facility] Neutrophils/100 WBC (Bld) 51.2 % 47-70 [facility] Potassium [Moles/Vol] 4.1 mmol/L 3.5-5.1 [facility] [place] Protein [Mass/Vol] 8.2 g/dL 6.4-8.2 [facility] Sodium [Moles/Vol] 139 mmol/L 136-145 [facility] Triglyceride [Mass/Vol] 178 mg/dL <199 [facility] Comment on above: The drugs N-Acetylcy steine and Metamizole may falsely depress this assay.Serum Triglycerides Reference Interval Normal <150 mg/dL Borderline high 150 - 199 mg/dL High 200 - 499 mg/dL Very High > or = 500 mg/dL WBC (Bld) [#/Vol] 8.5 10*3/uL 4.4-11.0 [facility] Blood erythrocytes count (nu mber/volume)Ordered By: Blaise Hall on 05-10-2023 RBC (Bld) [#/Vol] 5.31 10*6/uL 4.6-6.2 [facility] Blood hemoglobin measurement (mass/volume)Ordered By: Blaise Hall on 05-10-2023 Hemoglobin (Bld) [Mass/Vol] 15.8 g/dL 13.0-16.5 [facility] Blood lymphocytes/100 leukoc ytesOrdered By: Blaise Hall on 05-10-2023 Lymphocytes/100 WBC (Bld) 39.6 % 19-41 [facility] Blood monocytes/100 leukocyt esOrdered By: Blaise Hall on 05-10-2023 Monocytes/100 WBC (Bld) 6.8 % 0-10 [facility] Blood platelet mean volumeOr dered By: Blaise Hall on 05-10-2023 Platelet mean volume (Bld) [Entitic vol] 11.1 fL 6.2-12.0 [facility] Determination of erythrocyte mean corpuscular volume (MCV)Ordered By: Blaise Hall on 05-10-2023 MCV (RBC) [Entitic vol] 91.5 fL 80-94 [facility] Direct bilirubinOrdered By: Blaise Hall on 05-10-2023 Bilirubin.direct [Mass/Vol] 0.18 mg/dL 0.00-0.30 [facility] Hematocrit Auto (Bld) [Volum e fraction]Ordered By: Balise Hall on 05-10-2023 Hematocrit (Bld) [Volume fraction] 48.6 % 40-54 [facility] - Chemistry and C hemistry - challengeOrdered By: Blaise Hall on 11-20-2023 ALP [Catalytic activity/Vol] 75 U/L 45-117 [facility] ALT [Catalytic activity/Vol] 30 U/L 16-61 [facility] CO2 [Moles/Vol] 27.0 mmol/L 21.0-32.0 [facility] Globulin (S) [Mass/Vol] 4.2 g/dL 2.2-4.2 [facility] Urea nitrogen/Creatinine [Mass ratio] 13.4 mg/mg 10-20 [facility] - Hematology and Cell countsOrdered By: Blaise Hall on 05-10-2023 Erythrocyte distribution width (RBC) [Entitic vol] 42.1 fL 35.1-43.9 [facility] Erythrocyte distribution width (RBC) [Ratio] 12.5 % 11.6-14.6 [facility] Immature granulocytes/100 WBC (Bld) 0.200 % 0.0-0.9 [facility] Comment on above: IG% - Immature Granu locytes (promyelocytes, myelocytes and metamyelocytes) > 1% indicates that a LEFT SHIFT is Present. MCH (RBC) [Entitic mass] 29.8 pg 27.0-32.0 [facility] Nucleated RBC/100 WBC (Bld) [Ratio] 0 % 0-5 [facility] MCHC Auto (RBC) [Mass/Vol]Or dered By: Blaise Hall on 05-10-2023 MCHC (RBC) [Mass/Vol] 32.5 g/dL 32-36 [facility] [place] No Panel InformationOrdered By: Blaise Hall on 05-10-2023 Estimated GFR (MDRD) Amer 79 mL/min >60 [facility] Comment on above: GFR Calc Estimated GFR (MDRD) Non-Af Amer 65 mL/min >60 [facility] Comment on above: Non- GFR Calc Prostate Specific Antigen Screen 0.37 ng/mL 0.00-4.00 [facility] Comment on above: This test was perfor med using the TPSA assay method for the[employer] chemistry system. Values obtained with differentassay methods cannot be used interchangably.When changing PSA assays in the course of monitoring apatient, additional sequential testing should be carriedout to confirm baseline values. Thyroid Stimulating Hormone (TSH) 3.51 uIU/mL 0.358-3.74 [facility] Vitamin D 25-Hydroxy 32.9 ng/mL [facility] Comment on above: Vitamin D 25(OH) Sta tus Range Deficiency <20 ng/mL (50nmol/L) Insufficiency 20 - 30 ng/mL (50 - 75 nmol/L) Sufficiency 30 - 100 ng/mL (75 - 250 nmol/L) Toxicity >100 ng/mL (>250 nmol/L) Platelets bldOrdered By: Yin Hall on 05-10-2023 Platelets (Bld) [#/Vol] 194 10*3/uL 150-450 [facility] Serum or plasma albumin meir urement (mass/volume)Ordered By: Blaise Hall on 05-10-2023 Albumin [Mass/Vol] 4.0 g/dL 3.2-5.0 [facility] Serum or plasma albumin/glob ulin mass ratioOrdered By: Blaise Hall on 05-10-2023 Albumin/Globulin [Mass ratio] 1.0 {ratio} 0.9-2.4 [facility] Serum or plasma calcium meir urement (mass/volume)Ordered By: Blaise Hall on 05-10-2023 Calcium [Mass/Vol] 9.3 mg/dL 8.5-10.1 [facility] Serum or plasma cholesterol in HDL measurement (mass/volume)Ordered By: Blaise Hall on 05-10-2023 Cholesterol in HDL [Mass/Vol] 41 mg/dL >40 [facility] Comment on above: The drugs N-Acetylcy steine and Metamizole may falsely depress this assay. Reference Range HDL <40 mg/dL Low HDL Cholesterol HDL >or= 60 mg/dL High HDL Cholesterol Serum or plasma cholesterol in VLDL measurement (mass/volume)Ordered By: Blaise Hall on 05-10-2023 Cholesterol in VLDL [Mass/Vol] 36 mg/dL 5-40 [facility] Serum or plasma creatinine m easurement (mass/volume)Ordered By: Blaise Hall on 05-10-2023 Creatinine [Mass/Vol] 1.19 mg/dL 0.70-1.30 [facility] [place] Comment on above: The validity of the calculated GFR & GFRAA in patients over 70 years has not been determined. Clinical correlation is essential. Serum or plasma low density lipoprotein (LDL) cholesterol measurement (mass/volume)Ordered By: Blaise Hall on 05-10-2023 Cholesterol in LDL [Mass/Vol] 196 mg/dL 0-130 [facility] Serum or plasma urea nitroge n measurement (mass/volume)Ordered By: Blaise Hall on 05-10-2023 Urea nitrogen [Mass/Vol] 16 mg/dL 7-18 [facility] Thin prep Papanicolaou smear with manual screeningOrdered By: Blaise Hall on 05-10-2023 Thin prep Papanicolaou smear with manual screening 20 U/L 15-37 [facility] Thin prep Papanicolaou smear with manual screening 7 5-15 [facility] US CAROTID ARTERIES ROSE VAS LABon 09-09-2022 [facility] Basophil percentageOrdered B y: Dr. Mckinley on 09-01-2022 Bilirubin [Mass/Vol] 0.30 mg/dL 0.20-1.00 [facility] Comment on above: For patients on eltr ombopag therapy, use of Dimension [place] TBIL is not recommended. Cholesterol [Mass/Vol] 240 mg/dL <200 [facility] Comment on above: <200 mg/dL Desirable 200-240 mg/dL Borderline >240 mg/dL High Risk Protein [Mass/Vol] 7.5 g/dL 6.4-8.2 [facility] Triglyceride [Mass/Vol] 243 mg/dL <199 [facility] Comment on above: The drugs N-Acetylcy steine and Metamizole may falsely depress this assay.Serum Triglycerides Reference Interval Normal <150 mg/dL Borderline high 150 - 199 mg/dL High 200 - 499 mg/dL Very High > or = 500 mg/dL Direct bilirubinOrdered By: Dr. Mckinley on 09-01-2022 Bilirubin.direct [Mass/Vol] 0.12 mg/dL 0.00-0.30 [facility] - Chemistry and C hemistry - challengeOrdered By: Dr. Mckinley on 09-01-2022 ALP [Catalytic activity/Vol] 69 U/L 45-117 [facility] ALT [Catalytic activity/Vol] 33 U/L 16-61 [facility] Globulin (S) [Mass/Vol] 3.6 g/dL 2.2-4.2 [facility] Serum or plasma albumin meir urement (mass/volume)Ordered By: Dr. Mckinley on 09-01-2022 Albumin [Mass/Vol] 3.9 g/dL 3.2-5.0 [facility] Serum or plasma cholesterol in HDL measurement (mass/volume)Ordered By: Dr. Mckinely on 09-01-2022 Cholesterol in HDL [Mass/Vol] 35 mg/dL >40 [facility] Comment on above: The drugs N-Acetylcy steine and Metamizole may falsely depress this assay. Reference Range HDL <40 mg/dL Low HDL Cholesterol HDL >or= 60 mg/dL High HDL Cholesterol Serum or plasma cholesterol in VLDL measurement (mass/volume)Ordered By: Dr. Mckinley on 09-01-2022 Cholesterol in VLDL [Mass/Vol] 49 mg/dL 5-40 [facility] Serum or plasma low density lipoprotein (LDL) cholesterol measurement (mass/volume)Ordered By: Dr. Mckinley on 09-01-2022 Cholesterol in LDL [Mass/Vol] 156 mg/dL 0-130 [facility] Thin prep Papanicolaou smear with manual screeningOrdered By: Dr. Mckinley on 09-01-2022 Thin prep Papanicolaou smear with manual screening 15 U/L 15-37 [facility] XR LUMBAR SPINE 2-3 VIEWS (S TANDARD)on 02-16-2022 XR LUMBAR SPINE 2-3 VIEWS (STANDARD) EXAMINATION: XR LUMBAR SPINE 2-3 VIEWS (STANDARD) HISTORY: ORDERING SYSTEM PROVIDED HISTORY: Low back pain, unspecified back pain laterality, unspecified chronicity, unspecified whether sciatica present, TECHNOLOGIST PROVIDED HISTORY: Illness/Other Reason for Exam: Low back pain x1 month Cancer History: Surgery, Radiation History: Encounter Type: Initial Additional Signs and Symptoms: NKI ORDERING SYSTEM PROVIDED DIAGNOSIS CODES: M54.50 Low back pain, unspecified back pain laterality, unspecified chronicity, unspecified whether sciatica present COMPARISON: None. FINDINGS: Three views of the lumbar spine. No acute osseous abnormality. Mild straightening of the lumbar lordosis. No listhesis. No abnormal curvature. Vertebral body heights are normal. L1-L2 and L2-L3 disc space narrowing with endplate sclerosis and mild anterior osteophytic spurring. Mild L3-L4 and L4-L5 disc space narrowing with mild anterior osteophytic spurring. Moderate L5-S1 disc space narrowing with vacuum disc phenomena, endplate sclerosis and mild anterior osteophytic spurring. Mild facet arthropathy of L5-S1. Multiple surgical clips seen in the left abdomen. Partial visualization of mild degenerative changes of the hips. IMPRESSION: No acute osseous abnormality. [id number] multilevel discogenic disease, greatest at L5-S1. [employer] Workstation ID: [id number] Dictated by: WANDER WHITEHEAD on WedFeb 18, 2022 9:09:33 PM EDT Transcribed by: BERTIN ELLIOTT on WedFeb 18, 2022 9:19:33 PM EDT Finalized by: WANDER WHITEHEAD on WedFeb 19, 2022 7:15:13 PM EDT Normal [facility] Comment on above: Order Comment: Injur y/Trauma or Illness?:Illness/Other How long have you had these symptoms (acute/chronic)?:Acute Reason for exam?:low back pain x1 month History of cancer?: Surgeries, chemotherapy, or radiation?: Type of Exam?:Initial Additional signs and symptoms?:NKI XR SI JOINTS 3+ VIEWSon 01-20 XR SI JOINTS 3+ VIEWS EXAMINATION: XR SI JOINTS 3+ VIEWS HISTORY: ORDERING SYSTEM PROVIDED HISTORY: Low back pain, unspecified back pain laterality, unspecified chronicity, unspecified whether sciatica present, TECHNOLOGIST PROVIDED HISTORY: Illness/Other Reason for exam: low back pain x 1 month Cancer History: Surgery, RadiationHistory: Encounter Type: Initial Additional signs and symptoms: NKI ORDERING SYSTEM PROVIDED DIAGNOSIS CODES: M54.50 Low back pain, unspecified back pain laterality, unspecified chronicity, unspecified whether sciatica present COMPARISON: None. FINDINGS: Three views of the sacroiliac joints. No acute osseous abnormality. Mild degenerative spurring at the lower margin of left sacroiliac joint. Sacroiliac joint spaces are otherwise preserved. Partial visualization of L5-S1 discogenic disease with vacuum disc phenomena. IMPRESSION: Mild degenerative changes at the lower margin of the left sacroiliac joint. Joint spaces are otherwise preserved. [employer] Workstation ID: [id number] Dictated by: WANDER WHITEHEAD on WedFeb 18, 2022 9:13:08 PM EDT Transcribed by: DONNA CASTANON on WedFeb 18, 2022 9:14:08 PM EDT Finalized by: WANDER WHITEHEAD on WedFeb 19, 2022 7:16:24 PM EDT [facility] Comment on above: Order Comment: Injur y/Trauma or Illness?:Illness/Other How long have you had these symptoms (acute/chronic)?:Acute Reason for exam?:low back pain x 1 month History of cancer?: Surgeries, chemotherapy, or radiation?: Type of Exam?:Initial Additional signs and symptoms?:NKI US ABD RT UPPER QUADRANTon 0 01-05-2022 [facility] OCT OPTIC NERVE CIRRUS OU (B OTH EYES) [facility] Vital Signs Date Time Vital Sign Value Performing Clinician Faci argenis 12-12-2024 12:45-0400 Diastolic blood pressure 74 mm[Hg] Radha Bravo MD Work Phone: [facility] 12-12-2024 12:45-0400 Heart rate 59 /min Radha Bravo MD Work Phone: [facility] 12-12-2024 12:45-0400 SaO2% (BldA) [Mass fraction] 98 % Radha Bravo MD Work Phone: [facility] 12-12-2024 12:45-0400 Systolic blood pressure 113 mm[Hg] Radha Bravo MD Work Phone: [facility] 12-12-2024 12:15-0400 Respiratory rate 16 /min Radha Bravo MD Work Phone: [facility] 12-12-2024 11:10-0400 Body mass index (BMI) [Ratio] 26.33 kg/m2 Radha Bravo MD Work Phone: [facility] 12-12-2024 11:10-0400 Body temperature 98.4 [degF] Radha Bravo MD Work Phone: [facility] 12-12-2024 11:10-0400 Body weight 85.3 kg Radha Bravo MD Work Phone: [facility] 11-27-2024 09:21-0400 Body height 180 cm Anila Clyde [employer] Work Phone: [facility] 11-27-2024 09:21-0400 Body mass index (BMI) [Ratio] 26.32 kg/m2 Anila Clyde [employer] Work Phone: [facility] 11-27-2024 09:21-0400 Body temperature 97.5 [degF] Anila Clyde [employer] Work Phone: [facility] 11-27-2024 09:21-0400 Body weight 85.28 kg Anila Clyde [employer] Work Phone: [facility] 11-27-2024 09:21-0400 Diastolic blood pressure 84 mm[Hg] Anila Clyde [employer] Work Phone: [facility] 11-27-2024 09:21-0400 Heart rate 72 /min Anila Clyde [employer] Work Phone: [facility] 11-27-2024 09:21-0400 Respiratory rate 12 /min Anila Clyde [employer] Work Phone: [facility] 11-27-2024 09:21-0400 SaO2% (BldA) [Mass fraction] 98 % Anila Clyde [employer] Work Phone: [facility] 11-27-2024 09:21-0400 Systolic blood pressure 136 mm[Hg] Anila Clyde [employer] Work Phone: [facility] 10-26-2024 09:31-0400 Body height 182.[address] Blaise Hall MD Work Phone: [facility] 10-26-2024 09:31-0400 Body mass index (BMI) [Ratio] 25.6 kg/m2 Dr. Blaise Hall MD Work Phone: [facility] 10-26-2024 09:31-0400 Body weight 85.[address] Blaise Hall MD Work Phone: [facility] 10-26-2024 09:31-0400 Diastolic blood pressure 88 mm[Hg] Dr. Blaise Hall MD Work Phone: [facility] 10-26-2024 09:31-0400 Heart rate 62 /min Dr. Blaise Hall MD Work Phone: [facility] 10-26-2024 09:31-0400 Respiratory rate 16 /min Dr. Blaise Hall MD Work Phone: [facility] 10-26-2024 09:31-0400 Systolic blood pressure 142 mm[Hg] Dr. Blaise Hall MD Work Phone: [facility] 08-22-2024 10:01-0500 Diastolic blood pressure 81 mm[Hg] Ketty Rojas DO Work Phone: [facility] 08-22-2024 10:01-0500 Heart rate 70 /min Ketty Venturale DO Work Phone: [facility] 08-22-2024 10:01-0500 SaO2% (BldA) [Mass fraction] 98 % Ketty Rojas DO Work Phone: [facility] 08-22-2024 10:01-0500 Systolic blood pressure 159 mm[Hg] Ketty Venturale DO Work Phone: [facility] 09-02-2023 08:36-0400 Body height 182.[address] Blaise Hall Work Phone: [facility] 09-02-2023 08:36-0400 Body mass index (BMI) [Ratio] 25.3 kg/m2 Dr. Blaise Hall Work Phone: [facility] 09-02-2023 08:36-0400 Body weight 84.[address] Blaise Hall Work Phone: [facility] 09-02-2023 08:36-0400 Diastolic blood pressure 85 mm[Hg] Dr. Blaise Hall Work Phone: [facility] 09-02-2023 08:36-0400 Heart rate 57 /min Dr. Blaise Hall Work Phone: [facility] 09-02-2023 08:36-0400 Respiratory rate 14 /min Dr. Blaise Hall Work Phone: [facility] 09-02-2023 08:36-0400 Systolic blood pressure 147 mm[Hg] Dr. Blaise Hall Work Phone: [facility] 08-26-2023 08:07-0500 Body mass index (BMI) [Ratio] 25.5 kg/m2 Dr. Blaise Hall Work Phone: [facility] 08-26-2023 08:07-0500 Body temperature 97.1 [degF] Dr. Blaise Hall Work Phone: [facility] 08-26-2023 08:07-0500 Body weight 85.[address] Blaise Hall Work Phone: [facility] 08-26-2023 08:07-0500 Diastolic blood pressure 84 mm[Hg] Dr. Blaise Hall Work Phone: [facility] 08-26-2023 08:07-0500 Heart rate 57 /min Dr. Blaise Hall Work Phone: [facility] 08-26-2023 08:07-0500 Respiratory rate 16 /min Dr. Blaise Hall Work Phone: [facility] 08-26-2023 08:07-0500 SaO2% (BldA) [Mass fraction] 97 % Dr. Blaise Hall Work Phone: [facility] 08-26-2023 08:07-0500 Systolic blood pressure 137 mm[Hg] Dr. Blaise Hall Work Phone: [facility] 08-24-2023 09:25-0500 Diastolic blood pressure 82 mm[Hg] Ketty Rojas DO Work Phone: [facility] 08-24-2023 09:25-0500 Heart rate 61 /min Ketty Rojas DO Work Phone: [facility] 08-24-2023 09:25-0500 SaO2% (BldA) [Mass fraction] 99 % Ketty Rojas DO Work Phone: [facility] 08-24-2023 09:25-0500 Systolic blood pressure 169 mm[Hg] Ketty Rojas DO Work Phone: [facility] 05-03-2023 08:03-0500 Body height 182.[address] Blaise Hall Work Phone: [facility] 05-03-2023 08:03-0500 Body mass index (BMI) [Ratio] 25.8 kg/m2 Dr. Blaise Hall Work Phone: [facility] 05-03-2023 08:03-0500 Body temperature 98.2 [degF] Dr. Blaise Hall Work Phone: [facility] 05-03-2023 08:03-0500 Body weight 86.[address] Blaise Hall Work Phone: [facility] 05-03-2023 08:03-0500 Diastolic blood pressure 90 mm[Hg] Dr. Blaise Hall Work Phone: [facility] 05-03-2023 08:03-0500 Heart rate 66 /min Dr. Blaise Hall Work Phone: [facility] 05-03-2023 08:03-0500 Respiratory rate 16 /min Dr. Blaise Hall Work Phone: [facility] 05-03-2023 08:03-0500 SaO2% (BldA) [Mass fraction] 97 % Dr. Blaise Hall Work Phone: [facility] 05-03-2023 08:03-0500 Systolic blood pressure 160 mm[Hg] Dr. Blaise Hall Work Phone: [facility] 02-08-2023 08:23-0400 Body mass index (BMI) [Ratio] 25.2 kg/m2 Dr. Blaise Hlal Work Phone: [facility] 02-08-2023 08:23-0400 Body temperature 98.2 [degF] Dr. Blaise Hall Work Phone: [facility] 02-08-2023 08:23-0400 Body weight 84.[address] Blaise Hall Work Phone: [facility] 02-08-2023 08:23-0400 Diastolic blood pressure 80 mm[Hg] Dr. Blaise Hall Work Phone: [facility] 02-08-2023 08:23-0400 Heart rate 60 /min Dr. Blaise Hall Work Phone: [facility] 02-08-2023 08:23-0400 Respiratory rate 16 /min Dr. Blaise Hall Work Phone: [facility] 02-08-2023 08:23-0400 SaO2% (BldA) [Mass fraction] 97 % Dr. Blaise Hall Work Phone: [facility] 02-08-2023 08:23-0400 Systolic blood pressure 137 mm[Hg] Dr. Blaise Hall Work Phone: [facility] 01-19-2023 09:11-0400 Diastolic blood pressure 102 mm[Hg] Krislyn Aberegg PA Work Phone: [facility] 01-19-2023 09:11-0400 Systolic blood pressure 176 mm[Hg] Krislyn Aberegg PA Work Phone: [facility] 01-19-2023 09:10-0400 Body temperature 97.7 [degF] Krislyn Aberegg PA Work Phone: [facility] 01-19-2023 09:10-0400 Body weight 84.73 kg Krislyn Aberegg PA Work Phone: [facility] 01-19-2023 09:10-0400 Heart rate 67 /min Krislyn Aberegg PA Work Phone: [facility] 01-19-2023 09:10-0400 Respiratory rate 18 /min Krislyn Aberegg PA Work Phone: [facility] 01-19-2023 09:10-0400 SaO2% (BldA) [Mass fraction] 98 % Krislyn Aberegg PA Work Phone: [facility] 09-01-2022 08:52-0400 Body height 182.[address] Mikhail Green Work Phone: [facility] 09-01-2022 08:52-0400 Body mass index (BMI) [Ratio] 26.7 kg/m2 Dr. Mikhail Green Work Phone: [facility] 09-01-2022 08:52-0400 Body weight 89.[address] Mikhail Green Work Phone: [facility] 09-01-2022 08:52-0400 Diastolic blood pressure 67 mm[Hg] Dr. Mikhail Green Work Phone: [facility] 09-01-2022 08:52-0400 Heart rate 54 /min Dr. Mikhail Green Work Phone: [facility] 09-01-2022 08:52-0400 Respiratory rate 16 /min Dr. Mikhail Green Work Phone: [facility] 09-01-2022 08:52-0400 Systolic blood pressure 115 mm[Hg] Dr. Mikhail Green Work Phone: [facility] 08-21-2022 16:07-0500 Diastolic blood pressure 79 mm[Hg] Mikhail Green MD Work Phone: [facility] 08-21-2022 16:07-0500 Heart rate 56 /min Mikhail Green MD Work Phone: [facility] 08-21-2022 16:07-0500 Systolic blood pressure 146 mm[Hg] Mikhail Green MD Work Phone: [facility] 08-21-2022 15:52-0500 Body weight 86.18 kg Mikhail Green MD Work Phone: [facility] 08-21-2022 15:52-0500 Respiratory rate 16 /min Mikhail Green MD Work Phone: [facility] 03-20-2022 09:00-0400 Body weight 82.56 kg Mikhail Green MD Work Phone: [facility] 03-20-2022 09:00-0400 Diastolic blood pressure 82 mm[Hg] Mikhail Green MD Work Phone: [facility] 03-20-2022 09:00-0400 Heart rate 55 /min Mikhail Green MD Work Phone: [facility] 03-20-2022 09:00-0400 SaO2% (BldA) [Mass fraction] 97 % Mikhail Green MD Work Phone: [facility] 03-20-2022 09:00-0400 Systolic blood pressure 132 mm[Hg] Mikhail Green MD Work Phone: [facility] 09-16-2021 08:57-0400 Diastolic blood pressure 76 mm[Hg] Trini Older [employer] Work Phone: [facility] 09-16-2021 08:57-0400 Systolic blood pressure 120 mm[Hg] Trini Older [employer] Work Phone: [facility] 09-16-2021 08:39-0400 Body weight 86.18 kg Trini Older [employer] Work Phone: [facility] 09-16-2021 08:39-0400 Heart rate 66 /min Trini Older [employer] Work Phone: [facility] 09-16-2021 08:39-0400 Respiratory rate 18 /min Trini Older [employer] Work Phone: [facility] 09-16-2021 08:39-0400 SaO2% (BldA) [Mass fraction] 100 % Trini Older [employer] Work Phone: [facility] Encounters Encounter Date Encounter Type Care Provider Facility Start: 12-14-2024 End: 02-13-2025 Follow-up encounter Anila Clyde [employer] Work Phone: General Surgery Start: 12-12-2024 ambulatory RADHA BRAVO Facili ty:[facility] Start: 12-12-2024 End: 12-12-2024 Subsequent hospital visit by physician Radha Bravo MD Work Phone: Ambulatory Surgery Comment on above: Screen for colon can cer [Z12.11] Start: 12-05-2024 Non-patient / Non-visit Kat DAMON -[facility] Work Phone: Start: 12-05-2024 ambulatory Blaise Hall Facility [facility] Start: 12-05-2024 Non-patient / Non-visit Dr. Darcie LIVINGSTON -[facility] Start: 12-05-2024 End: 12-05-[address] Blaise Hall MD Work Phone: [facility] Work Phone: Start: 12-05-2024 End: 12-05-[address] Patrick Mckinley MD -Cardiovascular Services Work Phone: Start: 12-05-2024 End: 12-05-2024 ambulatory Patrick Mckinley Facility:[facility] Start: 11-27-2024 End: 11-27-2024 Patient encounter procedure Anila Clyde [employer] Work Phone: General Surgery Comment on above: Screen for colon can cer (Primary Dx); History of colonic polyps Start: 11-27-2024 End: 11-27-2024 ambulatory ANILA CARRANZA Facility:[facility] Start: 10-26-2024 End: 10-26-[address] Patrick Mckinley MD -[facility] Work Phone: Start: 10-26-2024 End: 10-26-2024 ambulatory Patrick Mckinley Facility:[facility] Start: 08-22-2024 End: 08-22-2024 Patient encounter procedure Ketty Rojas DO Work Phone: Vascular Surgery Comment on above: Bilateral carotid ar sarah stenosis (Primary Dx) Start: 08-22-2024 End: 08-22-2024 ambulatory KETTY ROJAS Facility:[facility] Start: 07-03-2024 End: 07-03-2024 ambulatory Blaise Isabel Facility:[facility] Start: 06-26-2024 End: 06-26-2024 ambulatory [facility] Isabel Facility:[facility] Start: 06-16-2024 ambulatory [facility] Isabel Facility :[facility] Start: 06-16-2024 End: 06-16-2024 ambulatory [facility] Isabel Facility:[facility] Start: 10-22-2023 End: 10-22-[address] Blaise Hall Work Phone: [facility] Work Phone: Start: 10-22-2023 End: 10-22-[address] Blaise Hall Work Phone: [facility] Work Phone: Start: 09-02-2023 End: 09-02-[address] Blaise Hall Work Phone: [facility] Work Phone: Start: 08-26-2023 End: 08-26-[address] Blaise Hall Work Phone: [facility] Work Phone: Start: 08-24-2023 End: 08-24-2023 Patient encounter procedure Ketty Rojas DO Work Phone: Vascular Surgery Comment on above: 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) (Primary Dx); Bilateral carotid artery stenosis Start: 05-10-2023 End: 05-10-[address] Blaise Hall Work Phone: [facility] Work Phone: Start: 05-10-2023 End: 05-10-[address] Blaise Hall Work Phone: [facility] Work Phone: Start: 05-03-2023 End: 05-03-[address] Blaise Hall Work Phone: [facility] Work Phone: Start: 02-08-2023 End: 02-08-[address] Blaise Hall Work Phone: [facility] Work Phone: Start: 01-20-2023 Telephone encounter Shivani LUKE Work Phone: [facility] Comment on above: Results Start: 01-19-2023 Telephone encounter Mikhail barber MD Work Phone: [facility] [place] Comment on above: Appointment Start: 01-19-2023 End: 01-19-2023 Patient encounter procedure Shivani LUKE Work Phone: [facility] Comment on above: Screening for STD (s exually transmitted disease) (Primary Dx); Hypertension, essential Start: 09-24-2022 Telephone encounter Madison grullon OD Work Phone: Ophthalmology Comment on above: Prescription Problem Start: 09-23-2022 Telephone encounter Mikhail barber MD Work Phone: [facility] [place] Comment on above: Patient Question Start: 09-17-2022 Non-patient / Non-visit Dr. Rubi Green Work Phone: [facility] Start: 09-16-2022 Non-patient / Non-visit Dr. Rubi Green Work Phone: [facility] Start: 09-16-2022 End: 09-16-[address] Mikhail Green Work Phone: [facility] Work Phone: Start: 09-16-2022 End: 09-16-[address] Mikhail Green Work Phone: [facility]Cardiovascula r Services Start: 09-09-2022 End: 09-09-2022 Patient encounter procedure [facility] Work Phone: Vasculary Surgery Comment on above: Hollenhorst plaque, right eye; Vision disturbance Start: 09-01-2022 End: 09-01-[address] Mikhail Green Work Phone: [facility] Work Phone: Start: 09-01-2022 End: 09-01-[address] Mikhail Green Work Phone: [facility] Start: 08-27-2022 Telephone encounter Mikhail barber MD Work Phone: [facility] [place] Comment on above: Patient Update Start: 08-25-2022 End: 08-25-2022 Patient encounter procedure Madison Arce OD Work Phone: Ophthalmology Comment on above: Hollenhorst plaque, right eye (Primary Dx); Punctate keratitis, bilateral; Regular astigmatism of both eyes; Presbyopia; Glaucoma suspect of both eyes; Combined forms of age-related cataract of both eyes Start: 08-21-2022 End: 08-21-2022 Patient encounter procedure Mikhail Green MD Work Phone: [facility] [place] Comment on above: LLQ pain (Primary Dx ); Vision disturbance; Screening for prostate cancer Start: 08-20-2022 ambulatory Mikhail gtz MD Work Phone: [facility] [place] Comment on above: Abdominal Pain Start: 08-18-2022 Telephone encounter Ketty Garner Rojas Work Phone: Cardiology Comment on above: Post Dc Program Call - Needs Attn Start: 07-14-2022 ambulatory Alison Pizarro Jayleen NAV[facility]O [facility] Comment on above: Population Health [facility] Out[facility] ([facility]) Start: 07-14-2022 Telephone encounter Mikhail barber MD Work Phone: [facility] [place] Comment on above: Orders Start: 03-24-2022 Refill Mikhail gtz MD Work Phone: [facility] [place] Comment on above: Refill Request; Refi ll Request Start: 03-23-2022 Telephone encounter Olgacarol WHITE Work Phone: Psychology Comment on above: outreach Start: 03-20-2022 Telephone encounter Olga WHITE Work Phone: Psychology Comment on above: outreach Start: 03-20-2022 End: 03-20-2022 Patient encounter procedure Mikhail Green MD Work Phone: [facility] [place] Comment on above: Primary hypertension (Primary Dx); Mixed hyperlipidemia; Coronary artery calcification; Adjustment disorder with depressed mood Start: 02-17-2022 Telephone encounter Mikhail barber MD Work Phone: [facility] Comment on above: bowel problem Start: 02-16-2022 End: 02-17-2022 ambulatory [facility] Start: 01-12-2022 Telephone encounter Julia navarro [employer] Work Phone: [facility] Medicine [place] Comment on above: Results Start: 01-06-2022 Telephone encounter Mikhail barber MD Work Phone: [facility] Comment on above: Results (labs and ul trasound) Start: 01-05-2022 End: 01-05-2022 Subsequent hospital visit by physician [facility] Work Phone: Radiology Comment on above: RUQ pain [R10.11] Start: 01-04-2022 ambulatory Deedee morillo [employer] Work Phone: NURSE INCREMENT MANAGER Comment on above: Abdominal Pain Virtualist Start: 11-04-2021 Refill Mikhail gtz MD Work Phone: [facility] [place] Comment on above: Prescription Refills Start: 10-16-2021 Telephone encounter Ketty Rojas DO Work Phone: Vascular Surgery Comment on above: Results (US ABD Aort a ) Start: 10-14-2021 End: 10-14-2021 Patient encounter procedure Ketty Rojas DO Work Phone: Vascular Surgery Comment on above: APPOINTMENT CANCELLE D (Primary Dx) Start: 10-13-2021 Orders Only Ketty Pascual Ventura naveed DO Work Phone: Vascular Surgery Comment on above: Abdominal aortic ane urysm (AAA) without rupture (HCC) (Primary Dx) Start: 10-01-2021 Telephone encounter Ketty Rojas DO Work Phone: Vascular Surgery Comment on above: Appointment Start: 09-16-2021 End: 09-16-2021 Patient encounter procedure Trini Horowitz [employer] Work Phone: Internal Medicine [place] Comment on above: Mixed hyperlipidemia (Primary Dx); Essential hypertension; Screening for prostate cancer; Need for COVID-19 vaccine; Marijuana smoker; AAA (abdominal aortic aneurysm) without rupture (HCC) Start: 11-12-2020 End: 11-12-[address] CALLI ARAUZ [facility] Start: 10-22-2020 End: 10-22-[address] CALLI Rodas DAVONTE [facility] Procedures Date Procedure Procedure Detail Performing Clinician Start: 12-12-2024 Colonoscopy flx dx w /collj spec when pfrmd Anila Carranza [employer] Work Phone: Start: 06-24-2025 Colonoscopy Radha Bravo MD Work Phone: Start: 09-09-2022 Duplex scan extracra nial art compl bi study Mikhail Green MD Work Phone: Start: 08-25-2022 Computerized ophthal harry imaging optic nerve Madison Rafal Arce OD Work Phone: Start: 01-05-2022 Us abdominal real ti me w/image limited Julia Nick [employer] Work Phone: Start: 01-05-2022 Adult depression scr eening assessment Us 2 Work Phone: Start: 09-16-2021 PFIZER-BIONTECH COVI D-19 VACCINE, AGE 12+ YR (MORALES TOP) Trini Older [employer] Work Phone: Start: 09-13-2021 Lipid 1996 panel - S andre or Plasma Ketty Rojas DO Work Phone: Start: 12-31-2020 Adult depression scr eening assessment Trini Older [employer] Work Phone: Start: 12-20-2019 Colonoscopy Trini Older [employer] Work Phone: Plan of Treatment Date Care Activity Detail Author Start: 2032 RSV Vaccine (1 - 1-d ose 75+ series) RSV Vaccine (1 - 1-dose 75+ series) [facility] Start: 12-12-2029 Screening for malign ant neoplasm of colon [facility] Start: 09-13-2026 Lipid panel Lipid Screening [facility] Start: 09-13-2026 LIPID SCREEN LIPID SCREEN [facility] Start: 08-30-2025 Urine microalbumin profile [facility] Start: 08-21-2025 End: 08-21-2025 Patient encounter procedure Vasculary Surgery Comment on above: Dx: Bilateral caroti d artery stenosis [I65.23] 1 year follow up Start: 02-19-2025 Influenza vaccination Influenza Vacc ine (#1) [facility] Start: 01-05-2025 DIABETES SCREEN DIABETES SCREEN [facility] Start: 01-05-2025 Diabetes Screening Diabetes Screenin g [facility] Start: 12-19-2024 Colonoscopy COLONOSCOPY [facility] Start: 12-19-2024 COLORECTAL CANCER SCREENING COLORECTAL CANCER SCREENING [facility] Start: 12-19-2024 Screening for malign ant neoplasm of colon [facility] Start: 12-12-2024 End: 12-12-2024 Patient encounter procedure 12/12/2024 12:45 PM EDT Appointment Ambulatory Surgery [address] [place], [place] [address] Radha Bravo MD [address] [place] [id number] Screen for colon cancer [Z12.11]; History of colonic polyps [Z86.0100] Ambulatory Surgery Comment on above: Screen for colon can cer [Z12.11]; History of colonic polyps [Z86.0100] Start: 06-21-2024 Advance Directive Discussion Advance Directive Discussion [facility] Start: 02-20-2024 Covid-19 Vaccine () Covid-19 Vaccine () [facility] Start: 12-28-2023 DIABETES SCREEN DIABETES SCREEN [facility] Start: 08-22-2023 ANNUAL PCP TEAM SENIOR TECHNICAL PROGRAM MANAGER JEAN DISEASE VISIT ANNUAL PCP TEAM CHRONIC DISEASE VISIT [facility] Start: 06-21-2023 Advance Directive Discussion Advance Directive Discussion [facility] Start: 06-21-2023 Depression Assessment Depression Ass essment [facility] Start: 03-20-2023 ANNUAL PCP TEAM SENIOR TECHNICAL PROGRAM MANAGER JEAN DISEASE VISIT ANNUAL PCP TEAM CHRONIC DISEASE VISIT [facility] Start: 03-20-2023 COVID-19 VACCINE (4 - Booster for Pfizer series) COVID-19 VACCINE (4 - Booster for Pfizer series) [facility] Comment on above: Postponed from 11/11 (Declined at this time) Start: 03-20-2023 COVID-19 VACCINE (4 - Pfizer series) COVID-19 VACCINE (4 - Pfizer series) [facility] Comment on above: Postponed from 11/11 (Declined at this time) Start: 02-19-2023 End: 04-21-2023 Comprehensive metabolic 2000 panel - Serum or Plasma COMP METABOLIC PANEL Lab Routine Primary hypertension Expected: 02/19/2023 (Approximate), Expires: 04/21/2023 [facility] Work Phone: Comment on above: Expected: 02/19/2023 (Approximate), Expires: 04/21/2023 Start: 02-19-2023 Covid-19 Vaccine ( season) Covid-19 Vaccine () [facility] Start: 02-19-2023 Influenza vaccination C [facility] Start: 02-19-2023 End: 04-21-2023 Lipid 1996 panel - Serum or Plasma LIPID PANEL BASIC Lab Routine Mixed hyperlipidemia Expected: 02/19/2023 (Approximate), Expires: 04/21/2023 [facility] Work Phone: Comment on above: Expected: 02/19/2023 (Approximate), Expires: 04/21/2023 Start: 02-19-2023 End: 04-21-2023 PSA/PROSTSPECAG SCRN PSA/PROSTSPECAG SCRN Lab Routine Screening for prostate cancer Expected: 02/19/2023, Expires: 04/21/2023 [facility] Work Phone: Comment on above: Expected: 02/19/2023 , Expires: 04/21/2023 Start: 01-19-2023 End: 03-21-2023 Hepatitis B virus surface Ag [Presence] in Serum [facility] Work Phone: Comment on above: Expected: 01/19/2023 , Expires: 03/21/2023 Start: 01-19-2023 End: 03-21-2023 Hepatitis C virus Ab [Presence] in Serum [facility] Work Phone: Comment on above: Expected: 01/19/2023 , Expires: 03/21/2023 Start: 01-19-2023 End: 03-21-2023 SYPHILIS TOTAL W/REFLEX [facility] Work Phone: Comment on above: Expected: 01/19/2023 , Expires: 03/21/2023 Start: 01-19-2023 End: 03-21-2023 TRICHOMONAS VAGINALIS NAAT [facility] Work Phone: Comment on above: Expected: 01/19/2023 , Expires: 03/21/2023 Start: 01-05-2023 Adult depression scr eening assessment DEPRESSION SCREENING [facility] Start: 12-18-2022 Influenza vaccination INFLUENZA (#1) [facility] Comment on above: Postponed from 02/19 (Declined at this time) Start: 2022 ADVANCE DIRECTIVE DISCUSSION ADVANCE DIRECTIVE DISCUSSION [facility] Start: 2022 Pneumococcal Vaccine : 65+ (1 of 1 - PCV) Pneumococcal Vaccine: 65+ (1 of 1 - PCV) [facility] Start: 2022 PNEUMOCOCCAL: 65+ (1 - PCV) PNEUMOCOCCAL: 65+ (1 - PCV) [facility] Start: 09-16-2022 ANNUAL PCP TEAM SENIOR TECHNICAL PROGRAM MANAGER JEAN DISEASE VISIT ANNUAL PCP TEAM CHRONIC DISEASE VISIT [facility] Start: 09-16-2022 BP CONTROLLED (<130/80) BP CONTROLLE D (<130/80) [facility] Start: 09-16-2022 SHINGRIX VACCINE (2 of 2) BRANDT GRIX VACCINE (2 of 2) [facility] Comment on above: Postponed from 02/25 (Declined at this time) Start: 09-13-2022 Hepatitis B surface antibody level LDL CHOLESTEROL [facility] Start: 06-21-2022 DEPRESSION ASSESSMENT DEPRESSION ASS ESSMENT [facility] Start: 02-19-2022 End: 04-21-2022 Comprehensive metabolic 2000 panel - Serum or Plasma COMP METABOLIC PANEL Lab Routine Essential hypertension Mixed hyperlipidemia Expected: 02/19/2022 (Approximate), Expires: 04/21/2022 [facility] Work Phone: Comment on above: Expected: 02/19/2022 (Approximate), Expires: 04/21/2022 Start: 02-19-2022 Influenza vaccination INFLUENZA (#1) [facility] Start: 02-19-2022 End: 04-21-2022 LIPID PANEL BASIC LIPID PANEL BASIC Lab Routine Mixed hyperlipidemia Expected: 02/19/2022 (Approximate), Expires: 04/21/2022 [facility] Work Phone: Comment on above: Expected: 02/19/2022 (Approximate), Expires: 04/21/2022 Start: 02-19-2022 End: 04-21-2022 PSA/PROSTSPECAG SCRN PSA/PROSTSPECAG SCRN Lab Routine Screening for prostate cancer Expected: 02/19/2022 (Approximate), Expires: 04/21/2022 [facility] Work Phone: Comment on above: Expected: 02/19/2022 (Approximate), Expires: 04/21/2022 Start: 01-16-2022 COVID-19 VACCINE (4 - Booster for Pfizer series) COVID-19 VACCINE (4 - Booster for Pfizer series) [facility] Start: 12-31-2021 Adult depression scr eening assessment DEPRESSION SCREENING [facility] Start: 06-03-2021 PROSTATE CANCER SCRE ENING DISCUSSION PROSTATE CANCER SCREENING DISCUSSION [facility] Start: 06-03-2021 Prostate specific an tigen measurement Prostate Cancer Screening Discussion [facility] Start: 02-25-2021 SHINGRIX VACCINE (2 of 2) BRANDT GRIX VACCINE (2 of 2) [facility] Start: 01-19-2018 Medicare Annual Well ness Visit Medicare Annual Wellness Visit [facility] Start: 2017 RSV Vaccine (1 - 1-d ose 60+ series) RSV Vaccine (1 - 1-dose 60+ series) [facility] Start: 12-11-2007 Pneumococcal Vaccine : 50+ (1 of 1 - PCV) Pneumococcal Vaccine: 50+ (1 of 1 - PCV) [facility] Start: 2002 COLOGUARD (FIT-DNA) COLOGUARD (FIT-D NA) [facility] Start: [address] COLONOGRAPHY [facility] Start: 2002 FECAL OCCULT BLOOD FECAL OCCULT BLOO D [facility] Start: 2002 Screening for malign ant neoplasm of colon [facility] Start: 2002 [facility] Start: 12-11-1975 Anxiety Screening Anxiety Screening [facility] Start: 12-11-1975 BP CONTROLLED (<130/80) BP CONTROLLE D (<130/80) [facility] Start: 12-11-1975 Depression Screening Depression Scre ening [facility] Chlamydia trachomatis+Neisseria gonorrhoeae DNA [Presence] in Unspecified specimen by DINORAH with probe detection GONORRHEA/CHLAMYDIA NAAT Lab Routine Screening for STD (sexually transmitted disease) 01/19/2023 9:39 AM EDT [facility] Work Phone: Hepatic function panel [facility] Lipid 1996 panel - S andre or Plasma [facility] End: 11-27-2025 Screening colonoscopy COLONOSCOPY SCREENING Endoscopy Routine Screen for colon cancer History of colonic polyps 1 Occurrences starting 11/27/2024 until 11/27/2025 [facility] Work Phone: Comment on above: 1 Occurrences starti ng 11/27/2024 until 11/27/[address] [facility] End: 10-13-2022 US ABD AORTA COMPLETE VAS LAB US ABD AORTA COMPLETE VAS LAB Vascular Lab Routine Abdominal aortic aneurysm (AAA) without rupture (HCC) 1 Occurrences starting 10/13/2021 until 10/13/2022 [facility] Work Phone: Comment on above: 1 Occurrences starti ng 10/13/2021 until 10/13/2022 End: 10-16-2022 US ABD AORTA COMPLETE VAS LAB US ABD AORTA COMPLETE [facility]AS LAB Vascular Lab Routine Abdominal aortic aneurysm (AAA) without rupture (HCC) 1 Occurrences starting 10/16/2021 until 10/16/2022 [facility] Work Phone: Comment on above: 1 Occurrences starti ng 10/16/2021 until 10/16/2022 End: 08-23-2024 US Abdominal Aorta US ABD AORTA COMPLETE [facility] Vascular Lab Routine 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) 1 Occurrences starting 08/24/2023 until 08/23/2024 [facility] Work Phone: Comment on above: 1 Occurrences starti ng 08/24/2023 until 08/23/2024 End: 08-23-2024 US Carotid arteries - bilateral US CAROTID ARTERIES ROSE [facility] Vascular Lab Routine Bilateral carotid artery stenosis 1 Occurrences starting 08/24/2023 until 08/23/2024 [facility] Work Phone: Comment on above: 1 Occurrences starti ng 08/24/2023 until 08/23/2024 End: 08-22-2025 US Carotid arteries - bilateral US CAROTID ARTERIES [facility]SE [facility] Vascular Lab Routine Bilateral carotid artery stenosis 1 Occurrences starting 08/22/2024 until 08/22/2025 [facility] Work Phone: Comment on above: 1 Occurrences starti ng 08/22/2024 until 08/22/2025 End: 08-28-2023 US CAROTID ARTERIES ROSE [facility] US CAROTID ARTERIES ROSE [facility] Vascular Lab Routine Hollenhorst plaque, right eye Vision disturbance 1 Occurrences starting 08/27/2022 until 08/28/2023 [facility] Work Phone: Comment on above: 1 Occurrences starti ng 08/27/2022 until 08/28/2023 [facility] Immunizations Immunization Date Immunization Notes Care Provider Caesar lombardi 06-23-2024 influenza virus vaccine, unspecified formulation Anila Carranza [employer] Work Phone: [facility] 04-29-2022 influenza, injectabl e, quadrivalent, preservative free Alison Clemens [facility] Work Phone: 04-29-2022 influenza virus vaccine, unspecified formulation Ketty Rojas DO Work Phone: [facility] 09-16-2021 COVID-19 vaccine, ag e 12+ yr (PFIZER-BIONTECH - MORALES TOP) Trini Older [employer] Work Phone: [facility] 05-30-2021 influenza, seasonal, injectable Trini Older [employer] Work Phone: [facility] Work Phone: 12-31-2020 zoster vaccine recombinant Trini Older [employer] Work Phone: [facility] Work Phone: 03-14-2019 influenza, seasonal, injectable Trini Older [employer] Work Phone: [facility] Work Phone: 03-15-2018 influenza, injectabl e, quadrivalent, contains preservative Trini Older [employer] Work Phone: [facility] Work Phone: 03-29-2017 influenza, seasonal, injectable Trini Older [employer] Work Phone: [facility] 04-27-2016 influenza, seasonal, injectable Trini Older [employer] Work Phone: [facility] 08-31-2015 tetanus toxoid, redu jules diphtheria toxoid, and acellular pertussis vaccine, adsorbed Trini Older [employer] Work Phone: [facility] Payers Date Payer Category Payer Self-pay [id number] 2018 Medicare MEDICARE MEDICAR E A AND B [id number] 2018-Present [phone] [address] [address] [place] [address] Medicare [id number] 2018 Medicare [id number] 2017 [place] [id number] 2017-Present [phone] [address] [place] [address] Medicaid [id number] 2017 Medicaid [id number] 2017 Medicare [id number] 2017 Medicaid [id number] 1955 Unknown [id number] 1955 Unknown [id number] 1955 Unknown [id number] 1955 Unknown [id number] Unknown [id number] Unknown [id number] Unknown [id number] Unknown [id number] Unknown [id number] Unknown [id number] Unknown [id number] Unknown [id number] Unknown [id number] Social History Date Type Detail Facility Start: 08-25-2013 End: 08-22-2024 Tobacco smoking status NHIS Ex-smoker [facility] Work Phone: Start: 09-25-1961 End: 09-26-2011 History of tobacco use Current smoker [facility] Work Phone: Start: 09-25-1961 End: 09-26-2011 History of tobacco use Cigarette Smoker [facility] Work Phone: Start: 08-25-2013 End: 08-24-2023 Cigarettes smoked current (pack per day) - Reported 1.5 [facility] Start: 08-25-2013 End: 08-22-2024 Tobacco use and exposure Smokeless tobacco non-user [facility] Work Phone: Start: 09-16-2021 End: 08-22-2024 Alcohol intake Current drinker of alcohol (finding) [facility] Start: 12-20-2019 History SDOH Alcohol Frequency 3 [facility] Start: 12-20-2019 History SDOH Alcohol Std Drinks 5 [facility] Start: 12-20-2019 History SDOH Alcohol Binge 4 [facility] Start: 12-20-2019 History SDOH Alcohol Comment 6 pack per week [facility] Start: 1955 Sex Assigned At Not on file C [facility] Start: 12-25-2021 End: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 mechanically assisted ventilation 06/18/2015 06/19/2015 Overview: Grade I airway A/P: Sedated, WTE once stable and awake Pain, postoperative, acute 06/18/201511/28 Overview: A/P: Continue with IV BLEACH MIXER. Pain well controlled a this time. Supplement for pain score > 4. 06/20/2015 Stop BLEACH MIXER pump, start oral medications Hypovolemia 06/18/2015 06/19/2015 Overview: EBL: 9L, cell savor 4L, 2 FFP A/P: IVF resuscitation as needed. documented as of this encounter (statuses as of 03/24/2022) [facility] of Past illness Narrative* Problem Noted Date Resolved Date Generalized abdominal pain 06/03/201612/01 Adjustment disorder with mixed anxiety and depre ssed mood 10/16/2015 05/20/2021 Last Assessment & Plan: History of depression/anxiety. Denies feeling down, depressed, hopeless, anhedonia. Pain disorder with psychological component 10/1506/02/2016 Thrombocytopenia due to blood loss 06/22/2015 06/22/2015 On mechanically assisted ventilation 06/18/2015 06/19/2015 Overview: Grade I airway A/P: Sedated, WTE once stable and awake Pain, postoperative, acute 06/18/201511/28 Overview: A/P: Continue with IV BLEACH MIXER. Pain well controlled a this time. Supplement for pain score > 4. 06/20/2015 Stop BLEACH MIXER pump, start oral medications Hypovolemia 06/18/2015 06/19/2015 Overview: EBL: 9L, cell savor 4L, 2 FFP A/P: IVF resuscitation as needed. documented as of this encounter (statuses as of 07/16/2022) [facility] History of Past illness Narrative* Problem Noted Date Resolved Date Generalized abdominal pain 06/03/201612/01 Adjustment disorder with mixed anxiety and depre ssed mood 10/16/2015 05/20/2021 Last Assessment & Plan: History of depression/anxiety. Denies feeling down, depressed, hopeless, anhedonia. Pain disorder with psychological component 10/1506/02/2016 Thrombocytopenia due to blood loss 06/22/2015 06/22/2015 On mechanically assisted ventilation 06/18/2015 06/19/2015 Overview: Grade I airway A/P: Sedated, WTE once stable and awake Pain, postoperative, acute 06/18/201511/28 Overview: A/P: Continue with IV BLEACH MIXER. Pain well controlled a this time. Supplement for pain score > 4. 06/20/2015 Stop BLEACH MIXER pump, start oral medications Hypovolemia 06/18/2015 06/19/2015 Overview: EBL: 9L, cell savor 4L, 2 FFP A/P: IVF resuscitation as needed. documented as of this encounter (statuses as of 07/17/2022) [facility] History of Past illness Narrative* Problem Noted Date Resolved Date Generalized abdominal pain 06/03/201612/01 Adjustment disorder with mixed anxiety and depre ssed mood 10/16/2015 05/20/2021 Last Assessment & Plan: History of depression/anxiety. Denies feeling down, depressed, hopeless, anhedonia. Pain disorder with psychological component 10/1506/02/2016 Thrombocytopenia due to blood loss 06/22/2015 06/22/2015 On mechanically assisted ventilation 06/18/2015 06/19/2015 Overview: Grade I airway A/P: Sedated, WTE once stable and awake Pain, postoperative, acute 06/18/201511/28 Overview: A/P: Continue with IV BLEACH MIXER. Pain well controlled a this time. Supplement for pain score > 4. 06/20/2015 Stop BLEACH MIXER pump, start oral medications Hypovolemia 06/18/2015 06/19/2015 Overview: EBL: 9L, cell savor 4L, 2 FFP A/P: IVF resuscitation as needed. documented as of this encounter (statuses as of 08/19/2022) [facility] of Past illness Narrative* Problem Noted Date Resolved Date Generalized abdominal pain 06/03/201612/01 Adjustment disorder with mixed anxiety and depre ssed mood 10/16/2015 05/20/2021 Last Assessment & Plan: History of depression/anxiety. Denies feeling down, depressed, hopeless, anhedonia. Pain disorder with psychological component 10/1506/02/2016 Thrombocytopenia due to blood loss 06/22/2015 06/22/2015 On mechanically assisted ventilation 06/18/2015 06/19/2015 Overview: Grade I airway A/P: Sedated, WTE once stable and awake Pain, postoperative, acute 06/18/201511/28 Overview: A/P: Continue with IV BLEACH MIXER. Pain well controlled a this time. Supplement for pain score > 4. 06/20/2015 Stop BLEACH MIXER pump, start oral medications Hypovolemia 06/18/2015 06/19/2015 Overview: EBL: 9L, cell savor 4L, 2 FFP A/P: IVF resuscitation as needed. documented as of this encounter (statuses as of 08/22/2022) [facility] of Past illness Narrative* Problem Noted Date Resolved Date Generalized abdominal pain 06/03/201612/01 Adjustment disorder with mixed anxiety and depre ssed mood 10/16/2015 05/20/2021 Last Assessment & Plan: History of depression/anxiety. Denies feeling down, depressed, hopeless, anhedonia. Pain disorder with psychological component 10/1506/02/2016 Thrombocytopenia due to blood loss 06/22/2015 06/22/2015 On mechanically assisted ventilation 06/18/2015 06/19/2015 Overview: Grade I airway A/P: Sedated, WTE once stable and awake Pain, postoperative, acute 06/18/201511/28 Overview: A/P: Continue with IV BLEACH MIXER. Pain well controlled a this time. Supplement for pain score > 4. 06/20/2015 Stop BLEACH MIXER pump, start oral medications Hypovolemia 06/18/2015 06/19/2015 Overview: EBL: 9L, cell savor 4L, 2 FFP A/P: IVF resuscitation as needed. documented as of this encounter (statuses as of 08/23/2022) [facility] History of Past illness Narrative* Problem Noted Date Resolved Date Generalized abdominal pain 06/03/201612/01 Adjustment disorder with mixed anxiety and depre ssed mood 10/16/2015 05/20/2021 Last Assessment & Plan: History of depression/anxiety. Denies feeling down, depressed, hopeless, anhedonia. Pain disorder with psychological component 10/1506/02/2016 Thrombocytopenia due to blood loss 06/22/2015 06/22/2015 On mechanically assisted ventilation 06/18/2015 06/19/2015 Overview: Grade I airway A/P: Sedated, WTE once stable and awake Pain, postoperative, acute 06/18/201511/28 Overview: A/P: Continue with IV BLEACH MIXER. Pain well controlled a this time. Supplement for pain score > 4. 06/20/2015 Stop BLEACH MIXER pump, start oral medications Hypovolemia 06/18/2015 06/19/2015 Overview: EBL: 9L, cell savor 4L, 2 FFP A/P: IVF resuscitation as needed. documented as of this encounter (statuses as of 08/25/2022) [facility] History of Past illness Narrative* Problem Noted Date Resolved Date Generalized abdominal pain 06/03/201612/01 Adjustment disorder with mixed anxiety and depre ssed mood 10/16/2015 05/20/2021 Last Assessment & Plan: History of depression/anxiety. Denies feeling down, depressed, hopeless, anhedonia. Pain disorder with psychological component 10/1506/02/2016 Thrombocytopenia due to blood loss 06/22/2015 06/22/2015 On mechanically assisted ventilation 06/18/2015 06/19/2015 Overview: Grade I airway A/P: Sedated, WTE once stable and awake Pain, postoperative, acute 06/18/201511/28 Overview: A/P: Continue with IV BLEACH MIXER. Pain well controlled a this time. Supplement for pain score > 4. 06/20/2015 Stop BLEACH MIXER pump, start oral medications Hypovolemia 06/18/2015 06/19/2015 Overview: EBL: 9L, cell savor 4L, 2 FFP A/P: IVF resuscitation as needed. documented as of this encounter (statuses as of 08/27/2022) [facility] History of Past illness Narrative* Problem Noted Date Resolved Date Generalized abdominal pain 06/03/201612/01 Adjustment disorder with mixed anxiety and depre ssed mood 10/16/2015 05/20/2021 Last Assessment & Plan: History of depression/anxiety. Denies feeling down, depressed, hopeless, anhedonia. Pain disorder with psychological component 10/1506/02/2016 Thrombocytopenia due to blood loss 06/22/2015 06/22/2015 On mechanically assisted ventilation 06/18/2015 06/19/2015 Overview: Grade I airway A/P: Sedated, WTE once stable and awake Pain, postoperative, acute 06/18/201511/28 Overview: A/P: Continue with IV BLEACH MIXER. Pain well controlled a this time. Supplement for pain score > 4. 06/20/2015 Stop BLEACH MIXER pump, start oral medications Hypovolemia 06/18/2015 06/19/2015 Overview: EBL: 9L, cell savor 4L, 2 FFP A/P: IVF resuscitation as needed. documented as of this encounter (statuses as of 08/27/2022) [facility] History of Past illness Narrative* Problem Noted Date Resolved Date Generalized abdominal pain 06/03/201612/01 Adjustment disorder with mixed anxiety and depre ssed mood 10/16/2015 05/20/2021 Last Assessment & Plan: History of depression/anxiety. Denies feeling down, depressed, hopeless, anhedonia. Pain disorder with psychological component 10/1506/02/2016 Thrombocytopenia due to blood loss 06/22/2015 06/22/2015 On mechanically assisted ventilation 06/18/2015 06/19/2015 Overview: Grade I airway A/P: Sedated, WTE once stable and awake Pain, postoperative, acute 06/18/201511/28 Overview: A/P: Continue with IV BLEACH MIXER. Pain well controlled a this time. Supplement for pain score > 4. 06/20/2015 Stop BLEACH MIXER pump, start oral medications Hypovolemia 06/18/2015 06/19/2015 Overview: EBL: 9L, cell savor 4L, 2 FFP A/P: IVF resuscitation as needed. documented as of this encounter (statuses as of 09/24/2022) [facility] History of Past illness Narrative* Problem Noted Date Resolved Date Generalized abdominal pain 06/03/201612/01 Adjustment disorder with mixed anxiety and depre ssed mood 10/16/2015 05/20/2021 Last Assessment & Plan: History of depression/anxiety. Denies feeling down, depressed, hopeless, anhedonia. Pain disorder with psychological component 10/1506/02/2016 Thrombocytopenia due to blood loss 06/22/2015 06/22/2015 On mechanically assisted ventilation 06/18/2015 06/19/2015 Overview: Grade I airway A/P: Sedated, WTE once stable and awake Pain, postoperative, acute 06/18/201511/28 Overview: A/P: Continue with IV BLEACH MIXER. Pain well controlled a this time. Supplement for pain score > 4. 06/20/2015 Stop BLEACH MIXER pump, start oral medications Hypovolemia 06/18/2015 06/19/2015 Overview: EBL: 9L, cell savor 4L, 2 FFP A/P: IVF resuscitation as needed. documented as of this encounter (statuses as of 10/05/2022) [facility] History of Past illness Narrative* Problem Noted Date Diagnosed Date Resolved Date Generalized abdominal pain 06/03/2016 0 12/01/2016 Adjustment disorder with mix ed anxiety and depressed mood 10/16/2015 05/20/2021 Last Assessment & Plan: History of depression/anxiety. Denies feeling down, depressed, hopeless, anhedonia. Pain disorder with psychological component 10/16/2015 06/02/2016 Thrombocytopenia due to blood loss 06/22/2015 06/22/2015 On mechanically assisted ventilation 06/18/2015 06/19/2015 Overview: Grade I airway A/P: Sedated, WTE once stable and awake Pain, postoperative, acute 06/18/2015 0 11/29/2015 Overview: A/P: Continue with IV BLEACH MIXER. Pain well controlled a this time. Supplement for pain score > 4. 06/20/2015 Stop BLEACH MIXER pump, start oral medications Hypovolemia 06/18/2015 06/19/2015 Overview: EBL: 9L, cell savor 4L, 2 FFP A/P: IVF resuscitation as needed. documented as of this encounter (statuses as of 01/19/2023) [facility] History of Past illness Narrative* Problem Noted Date Diagnosed Date Resolved Date Generalized abdominal pain 06/03/2016 0 12/01/2016 Adjustment disorder with mix ed anxiety and depressed mood 10/16/2015 05/20/2021 Last Assessment & Plan: History of depression/anxiety. Denies feeling down, depressed, hopeless, anhedonia. Pain disorder with psychological component 10/16/2015 06/02/2016 Thrombocytopenia due to blood loss 06/22/2015 06/22/2015 On mechanically assisted ventilation 06/18/2015 06/19/2015 Overview: Grade I airway A/P: Sedated, WTE once stable and awake Pain, postoperative, acute 06/18/2015 0 11/29/2015 Overview: A/P: Continue with IV BLEACH MIXER. Pain well controlled a this time. Supplement for pain score > 4. 06/20/2015 Stop BLEACH MIXER pump, start oral medications Hypovolemia 06/18/2015 06/19/2015 Overview: EBL: 9L, cell savor 4L, 2 FFP A/P: IVF resuscitation as needed. documented as of this encounter (statuses as of 01/21/2023) [facility] History of Past illness Narrative* Problem Noted Date Diagnosed Date Resolved Date Generalized abdominal pain 06/03/2016 0 12/01/2016 Adjustment disorder with mix ed anxiety and depressed mood 10/16/2015 05/20/2021 Last Assessment & Plan: History of depression/anxiety. Denies feeling down, depressed, hopeless, anhedonia. Pain disorder with psychological component 10/16/2015 06/02/2016 Thrombocytopenia due to blood loss 06/22/2015 06/22/2015 On mechanically assisted ventilation 06/18/2015 06/19/2015 Overview: Grade I airway A/P: Sedated, WTE once stable and awake Pain, postoperative, acute 06/18/2015 0 11/29/2015 Overview: A/P: Continue with IV BLEACH MIXER. Pain well controlled a this time. Supplement for pain score > 4. 06/20/2015 Stop BLEACH MIXER pump, start oral medications Hypovolemia 06/18/2015 06/19/2015 Overview: EBL: 9L, cell savor 4L, 2 FFP A/P: IVF resuscitation as needed. documented as of this encounter (statuses as of 01/28/2023) [facility] History of Past illness Narrative* Problem Noted Date Diagnosed Date Resolved Date Generalized abdominal pain 06/03/2016 0 12/01/2016 Adjustment disorder with mix ed anxiety and depressed mood 10/16/2015 05/20/2021 Last Assessment & Plan: History of depression/anxiety. Denies feeling down, depressed, hopeless, anhedonia. Pain disorder with psychological component 10/16/2015 06/02/2016 Thrombocytopenia due to blood loss 06/22/2015 06/22/2015 On mechanically assisted ventilation 06/18/2015 06/19/2015 Overview: Grade I airway A/P: Sedated, WTE once stable and awake Pain, postoperative, acute 06/18/2015 0 11/29/2015 Overview: A/P: Continue with IV BLEACH MIXER. Pain well controlled a this time. Supplement for pain score > 4. 06/20/2015 Stop BLEACH MIXER pump, start oral medications Hypovolemia 06/18/2015 06/19/2015 Overview: EBL: 9L, cell savor 4L, 2 FFP A/P: IVF resuscitation as needed. documented as of this encounter (statuses as of 02/03/2023) [facility] History of Past illness Narrative* Problem Noted Date Diagnosed Date Resolved Date Generalized abdominal pain 06/03/2016 0 12/01/2016 Adjustment disorder with mix ed anxiety and depressed mood 10/16/2015 05/20/2021 Last Assessment & Plan: History of depression/anxiety. Denies feeling down, depressed, hopeless, anhedonia. Pain disorder with psychological component 10/16/2015 06/02/2016 Thrombocytopenia due to blood loss 06/22/2015 06/22/2015 On mechanically assisted ventilation 06/18/2015 06/19/2015 Overview: Grade I airway A/P: Sedated, WTE once stable and awake Pain, postoperative, acute 06/18/2015 0 11/29/2015 Overview: A/P: Continue with IV BLEACH MIXER. Pain well controlled a this time. Supplement for pain score > 4. 06/20/2015 Stop BLEACH MIXER pump, start oral medications Hypovolemia 06/18/2015 06/19/2015 Overview: EBL: 9L, cell savor 4L, 2 FFP A/P: IVF resuscitation as needed. documented as of this encounter (statuses as of 08/24/2023) [facility] Diagnosis Mixed hyperlipidemia- Primary Essential hypertension Unspecified essential hypertension Screening for prostate cancer Special screening for malignant neoplasm of prostate Need for COVID-19 vaccine Marijuana smoker Cannabis abuse, unspecified AAA (abdominal aortic aneurysm) without rupture (HCC) Abdominal aneurysm without mention of rupture [facility] Abdominal [facility] aneurysm (AAA) without rupture (HCC)- Primary [facility] Diagnosis Abdominal aortic aneurysm (AAA) without rupture (HCC)- Primary [facility] Diagnosis APPOINTMENT CANCELLED- Primary [facility] Diagnosis Essential hypertension Unspecified essential hypertension [facility] Diagnosis RUQ abdominal pain- Primary Abdominal pain, right upper quadrant [facility] Diagnosis RUQ pain Abdominal pain, right upper quadrant [facility] Diagnosis Primary hypertension- Primary Unspecified essential hypertension Mixed hyperlipidemia Coronary artery calcification Coronary atherosclerosis of unspecified type of vessel, [place] or graft Adjustment disorder with depressed mood [facility] Diagnosis Mixed hyperlipidemia- Primary Primary hypertension Unspecified essential hypertension [facility] Diagnosis LLQ pain- Primary Abdominal pain, left lower quadrant Vision disturbance Unspecified visual disturbance Screening for prostate cancer Special screening for malignant neoplasm of prostate documented in this encounter [facility] note* Diagnosis Hollenhorst plaque, 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, bilateral Regular astigmatism of both eyes Regular astigmatism Presbyopia Glaucoma suspect of both eyes Preglaucoma, unspecified Combined forms of age-related cataract of both eyes Other and combined forms of senile cataract documented in this encounter [facility] note* Diagnosis Hollenhorst plaque, 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 Vision disturbance Unspecified visual disturbance [facility] Diagnosis Onset Date Resolution Status Coronary artery calcification chronic Essential (primary) hypertension chronic Hyperlipidemia chronic Abdominal aortic aneurysm (AAA) resolved [facility] Work Phone: Evaluation note* Diagnosis Hollenhorst plaque, 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 Vision disturbance Unspecified visual disturbance [facility]* Diagnosis Screening for STD (sexually transmitted disease)- Primary Screening examination for venereal disease Hypertension, essential Unspecified essential hypertension documented in this encounter [facility] note* Diagnosis Onset Date Resolution Status Coronary artery calcification chronic Essential (primary) hypertension chronic Hyperlipidemia chronic Abdominal aortic aneurysm (AAA) resolved Bilateral primary osteoarthritis of knee acute Carotid artery stenosis without cerebral infarction acute Coronary artery calcification chronic Essential (primary) hypertension chronic Hyperlipidemia chronic Abdominal aortic aneurysm (AAA) resolved [facility] Work Phone: Evaluation note* Diagnosis 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)- Primary Bilateral carotid artery stenosis Occlusion and stenosis of carotid artery without mention of cerebral infarction documented in this encounter [facility] note* Diagnosis Onset Date Resolution Status Carotid artery stenosis without cerebral infarction acute Coronary artery calcification chronic Essential (primary) hypertension chronic Hyperlipidemia chronic Abdominal aortic aneurysm (AAA) resolved Coronary artery calcification chronic Essential (primary) hypertension chronic Hyperlipidemia chronic Abdominal aortic aneurysm (AAA) resolved [facility] Work Phone: Evaluation note* Diagnosis Viral URI with cough- Primary Acute upper respiratory infections of unspecified site Primary hypertension Unspecified essential hypertension Erectile dysfunction, unspecified erectile dysfunction type Mixed hyperlipidemia Marijuana smoker Cannabis abuse, unspecified Adjustment disorder with mixed anxiety and depressed mood Need for influenza vaccination Need for prophylactic vaccination and inoculation against influenza Bilateral carotid artery stenosis- Primary Occlusion and stenosis of carotid artery without mention of cerebral infarction documented in this encounter [facility] note* Diagnosis Viral URI with cough- Primary Acute upper respiratory infections of unspecified site Primary hypertension Unspecified essential hypertension Erectile dysfunction, unspecified erectile dysfunction type Mixed hyperlipidemia Marijuana smoker Cannabis abuse, unspecified Adjustment disorder with mixed anxiety and depressed mood Need for influenza vaccination Need for prophylactic vaccination and inoculation against influenza Screen for colon cancer- Primary Special screening for malignant neoplasms, colon History of colonic polyps Personal history of colonic polyps documented in this encounter [facility] note* Diagnosis Viral URI with cough- Primary Acute upper respiratory infections of unspecified site Primary hypertension Unspecified essential hypertension Erectile dysfunction, unspecified erectile dysfunction type Mixed hyperlipidemia Marijuana smoker Cannabis abuse, unspecified Adjustment disorder with mixed anxiety and depressed mood Need for influenza vaccination Need for prophylactic vaccination and inoculation against influenza Screen for colon cancer Special screening for malignant neoplasms, colon History of colonic polyps Personal history of colonic polyps documented in this encounter [facility] for referral (narrative)* Outpatient Procedure (Routine) - Pending Review Specialty Diagnoses / Procedures Referred By Kevin lomeli Referred To Contact [facility] Diagnoses Abdominal aortic aneurysm (AAA) without rupture (HCC) Procedures US ABD AORTA COMPLETE VAS LAB DUP-SCAN AORTA IVC ILIAC VASCL/BPGS COMPLETE Ketty Rojas DO [address] [place] [address] [facility] [place] [address] [place] [address] Referral ID Status Reason Start Date Expiration Date Visits Requested Visits Authorized [id number] Pending Review Auto-Generat ed Referral 10/13/2021 10/13/2022 1 1 [facility] for referral (narrative)* Outpatient Procedure (Routine) - Pending Review Specialty Diagnoses / Procedures Referred By Contabimael lomeli [facility] Diagnoses Abdominal aortic aneurysm (AAA) without rupture (HCC) Procedures US ABD AORTA COMPLETE VAS LAB DUP-SCAN AORTA IVC ILIAC VASCL/BPGS COMPLETE Ketty Rojas DO [address] [place] [address] [facility] [address] [address] Referral ID Status Reason Start Date Expiration Date Visits Requested Visits Authorized [id number] Pending Review Auto-Generat ed Referral 10/16/2021 10/16/2022 1 1 [facility] for referral (narrative)* Diagnostic Procedure Only (Routine) - Closed Specialty Diagnoses / Procedures Referred By Contac t Referred To Contact US IMAGING Diagnoses RUQ pain Procedures US ABD RT UPPER QUADRANT US ABDOMINAL REAL TIME W/IMAGE LIMITED Julia Romero APRN.CNS [address] [place] [address] [facility] Imaging Referral ID Status Reason Start Date Expiration Date V isits Requested Visits Authorized [id number] Closed Auto-Generate d Referral 01/05/2022 02/04/2023 1 1 T [facility] for referral (narrative)* Outpatient Procedure (Routine) - Authorized Specialty Diagnoses / Procedures Referred By Contac t Referred To Contact [facility] Diagnoses Hollenhorst plaque, right eye Vision disturbance Procedures US CAROTID ARTERIES ROSE VAS LAB DUPLEX SCAN EXTRACRANIAL ART COMPL BI STUDY Mikhail Green MD [address] [place] [address] [facility] [place] [address] [place] [id number] Referral ID Status Reason Start Date Expiration Date Visits Requested Visits Authorized [id number] Authorized Auto-Generat ed Referral 08/27/2022 08/27/2023 1 1 [facility] for referral (narrative)* Outpatient Procedure (Routine) - Authorized Specialty Diagnoses / Procedures Referred By Contac t Referred To Contact [facility] Diagnoses 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) Procedures US ABD AORTA COMPLETE VAS LAB DUP-SCAN AORTA IVC ILIAC VASCL/BPGS COMPLETE Ketty Rojas DO [address] [place] [address] [facility] Vascular [address] [address] Referral ID Status Reason Start Date Expiration Date Visits Requested Visits Authorized [id number] Authorized Auto-Generat ed Referral 08/24/2023 08/23/2024 1 1 * Outpatient Procedure (Routine) - Authorized Specialty Diagnoses / Procedures Referred By Contac t Referred To Contact [facility] Diagnoses Bilateral carotid artery stenosis Procedures US CAROTID ARTERIES ROSE VAS LAB DUPLEX SCAN EXTRACRANIAL ART COMPL BI STUDY Ketty Rojas DO [address] [place] [address] [facility] [address] [address] Referral ID Status Reason Start Date Expiration Date Visits Requested Visits Authorized [id number] Authorized Auto-Generat ed Referral 08/24/2023 08/23/2024 1 1 [facility]No reason for referral information [facility] Work Phone: Reason for visit Narrative* Outpatient Procedure (Routine) - Closed Specialty Diagnoses / Procedures Referred By Contac t Referred To Contact [facility] Diagnoses Hollenhorst plaque, right eye Vision disturbance Procedures US CAROTID ARTERIES ROSE VAS LAB DUPLEX SCAN EXTRACRANIAL ART COMPL BI STUDY Mikhail Green MD [address] [place] [address] [facility] [address] [address] Referral ID Status Reason Start Date Expiration Date V isits Requested Visits Authorized [id number] Closed Auto-Generate d Referral 08/27/2022 08/27/2023 1 1 [facility] Outpatient Procedure (Routine) - Closed Specialty Diagnoses / Procedures Referred By Kevin lomeli Referred To Contact [facility] Diagnoses Screen for colon cancer History of colonic polyps Procedures COLONOSCOPY SCREENING COLONOSCOPY FLX DX W/COLLJ SPEC WHEN PFJOURDAND Anila Carranza APRN.[employer] [address] [place] [address] Phone: tel: fax: [facility] [address] [place] [address] Referral ID Status Reason Start Date Expiration Date V isits Requested Visits Authorized [id number] Closed Auto-Generate d Referral 11/27/2024 11/27/2025 1 1 [facility] Summary Purpose Family History Relationship Condition Age at Onset Recorded Date/T nemesio Not Specified Cardiac disease Unknown father Chronic obstructive pulmonary disease Unk nown mother Hypertension Unknown brother Coronary artery disease Unknown Abdominal aortic aneurysm (AAA) Unknown Hypertension Unknown Advance Directives Documents on File Type Date Recorded 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 Advance Directive(s) 12/20/2019 9:14 AM Advance Directive(s) 11/19/2016 9:15 AM Documents on File Type Date Recorded 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 Advance Directive(s) 12/20/2019 9:14 AM Advance Directive(s) 11/19/2016 9:15 AM Reason for Referral Specialty Diagnoses / Procedures Referred By Kevin lomeli Referred To Contact Ophthalmology Diagnoses Vision disturbance Procedures CONSULT TO OPHTHALMOLOGY OFFICE/OUTPATIENT [facility] MDM 60-74 MINUTES Mikhail Green MD [address] [place] [address] Referral ID Status Reason Start Date Expiration Date Visits Requested Visits Authorized [id number] Authorized PCP Requested Referral 08/21/2022 08/21/2023 1 1 Medications Administered Section Active Administered Medications - up to 3 most recent administrations Medication Order MAR Action Action Date Dose Rate Site PHENYLephrine 2.5 % 1 Drop (AK-DILATE, CHANO-SYNEPHRINE) 1 Drop, BOTH EYES, DIRECTED, Starting on Wed08/25/22 at 0830, Until Wed08/25/22 at 2028, Administer for dilation PROTECT FROM LIGHT Given 08/25/2022 8:30 AM EST 1 Drop proparacaine 0.5 % 1 Drop (ALCAINE) 1 Drop, BOTH EYES, DIRECTED, Starting on Wed08/25/22 at 0830, Until Wed08/25/22 at 2028, Administer for pneumo tonometry, tonopen tonometry, or pachymetry. In the event of a proparacaine shortage, administer tetracaine 0.5% ophthalmic drops 1 drop in the left eye as directed for pneumo tonometry, tonopen tonometry, or pachymetry Given 08/25/2022 8:30 AM EST 1 Drop tropicamide 1 % 1 Drop (MYDRIACYL) 1 Drop, BOTH EYES, DIRECTED, Starting on Wed08/25/22 at 0830, Until Wed08/25/22 at 2028, Administer for dilation Given 08/25/2022 8:30 AM EST 1 Drop Chief Complaint and Reason for Visit Chief Complaint 1 Y FU EORDERS Reason for Visit Coronary artery calc ification Essential (primary) hypertension Hyperlipidemia Abdominal aortic aneurysm (AAA) Chief Complaint 1 Y FU EORDERS CAD ASHD Amb Documentation Reason for Visit Coronary artery calc ification Essential (primary) hypertension Hyperlipidemia Abdominal aortic aneurysm (AAA) Chief Complaint STD Screening 6 M FU SCANNED ORDER Reason for Visit Coronary artery calc ification Essential (primary) hypertension Hyperlipidemia Abdominal aortic aneurysm (AAA) Bilateral primary osteoarthritis of knee Carotid artery stenosis without cerebral infarction Coronary artery calcification Essential (primary) hypertension Hyperlipidemia Abdominal aortic aneurysm (AAA) Chief Complaint BP Issues 1 Y FU E ORDERS Reason for Visit Carotid artery steno sis without cerebral infarction Coronary artery calcification Essential (primary) hypertension Hyperlipidemia Abdominal aortic aneurysm (AAA) Coronary artery calcification Essential (primary) hypertension Hyperlipidemia Abdominal aortic aneurysm (AAA) Chief Complaint Admit Date 1 Y FU October 26, 2024 9:19am CAD December 05, 2024 8:49 am Amb Documentation December 05, 2024 4:02 pm Reason for Visit Admit Date Coronary artery calcification October 26, 025 9:19am Essential (primary) hypertension October 9:19am Hyperlipidemia October 26, 2024 9:19am Abdominal aortic aneurysm (AAA) October 26, 2024 9:19am Additional Source Comments (unrecognized sect ion and content) No Status Records FoundNo Status Records FoundNo Status Records FoundNo Status Records Found INFORMATION SOURCE (unrecogn ized section and content) DATE CREATED AUTHOR 11/17/2020 Elder Wilkinson [facility] DATE CREATED AUTHOR AUTHOR'S ORGANIZ ATION 02/20/2022 [facility] DATE CREATED AUTHOR AUTHOR'S ORGANIZ ATION 12/14/2024 [facility] DATE CREATED AUTHOR AUTHOR'S ORGANIZ ATION 12/15/2024 [facility] Source Comments (unrecognize d section and content) In the event this informatio n is protected by the Federal Confidentiality of Alcohol and Drug Abuse Patient Records regulations: The Federal rules restrict any use of the information to criminally investigate or prosecute any alcohol or drug abuse patient.[facility] the event this information is protected by the Federal Confidentiality of Alcohol and Drug Abuse Patient Records regulations: The Federal rules restrict any use of the information to criminally investigate or prosecute any alcohol or drug abuse patient.[facility] the event this information is protected by the Federal Confidentiality of Alcohol and Drug Abuse Patient Records regulations: The Federal rules restrict any use of the information to criminally investigate or prosecute any alcohol or drug abuse patient.[facility] the event this information is protected by the Federal Confidentiality of Alcohol and Drug Abuse Patient Records regulations: The Federal rules restrict any use of the information to criminally investigate or prosecute any alcohol or drug abuse patient.[facility] the event this information is protected by the Federal Confidentiality of Alcohol and Drug Abuse Patient Records regulations: The Federal rules restrict any use of the information to criminally investigate or prosecute any alcohol or drug abuse patient.[facility] the event this information is protected by the Federal Confidentiality of Alcohol and Drug Abuse Patient Records regulations: The Federal rules restrict any use of the information to criminally investigate or prosecute any alcohol or drug abuse patient.[facility] the event this information is protected by the Federal Confidentiality of Alcohol and Drug Abuse Patient Records regulations: The Federal rules restrict any use of the information to criminally investigate or prosecute any alcohol or drug abuse patient.[facility] the event this information is protected by the Federal Confidentiality of Alcohol and Drug Abuse Patient Records regulations: The Federal rules restrict any use of the information to criminally investigate or prosecute any alcohol or drug abuse patient.[facility] the event this information is protected by the Federal Confidentiality of Alcohol and Drug Abuse Patient Records regulations: The Federal rules restrict any use of the information to criminally investigate or prosecute any alcohol or drug abuse patient.[facility] the event this information is protected by the Federal Confidentiality of Alcohol and Drug Abuse Patient Records regulations: The Federal rules restrict any use of the information to criminally investigate or prosecute any alcohol or drug abuse patient.[facility] the event this information is protected by the Federal Confidentiality of Alcohol and Drug Abuse Patient Records regulations: The Federal rules restrict any use of the information to criminally investigate or prosecute any alcohol or drug abuse patient.[facility] the event this information is protected by the Federal Confidentiality of Alcohol and Drug Abuse Patient Records regulations: The Federal rules restrict any use of the information to criminally investigate or prosecute any alcohol or drug abuse patient.[facility] the event this information is protected by the Federal Confidentiality of Alcohol and Drug Abuse Patient Records regulations: The Federal rules restrict any use of the information to criminally investigate or prosecute any alcohol or drug abuse patient.[facility] the event this information is protected by the Federal Confidentiality of Alcohol and Drug Abuse Patient Records regulations: The Federal rules restrict any use of the information to criminally investigate or prosecute any alcohol or drug abuse patient.[facility] the event this information is protected by the Federal Confidentiality of Alcohol and Drug Abuse Patient Records regulations: The Federal rules restrict any use of the information to criminally investigate or prosecute any alcohol or drug abuse patient.[facility] the event this information is protected by the Federal Confidentiality of Alcohol and Drug Abuse Patient Records regulations: The Federal rules restrict any use of the information to criminally investigate or prosecute any alcohol or drug abuse patient.[facility] the event this information is protected by the Federal Confidentiality of Alcohol and Drug Abuse Patient Records regulations: The Federal rules restrict any use of the information to criminally investigate or prosecute any alcohol or drug abuse patient.[facility] the event this information is protected by the Federal Confidentiality of Alcohol and Drug Abuse Patient Records regulations: The Federal rules restrict any use of the information to criminally investigate or prosecute any alcohol or drug abuse patient.[facility] the event this information is protected by the Federal Confidentiality of Alcohol and Drug Abuse Patient Records regulations: The Federal rules restrict any use of the information to criminally investigate or prosecute any alcohol or drug abuse patient.[facility] the event this information is protected by the Federal Confidentiality of Alcohol and Drug Abuse Patient Records regulations: The Federal rules restrict any use of the information to criminally investigate or prosecute any alcohol or drug abuse patient.[facility] the event this information is protected by the Federal Confidentiality of Alcohol and Drug Abuse Patient Records regulations: The Federal rules restrict any use of the information to criminally investigate or prosecute any alcohol or drug abuse patient.[facility] the event this information is protected by the Federal Confidentiality of Alcohol and Drug Abuse Patient Records regulations: The Federal rules restrict any use of the information to criminally investigate or prosecute any alcohol or drug abuse patient.[facility] the event this information is protected by the Federal Confidentiality of Alcohol and Drug Abuse Patient Records regulations: The Federal rules restrict any use of the information to criminally investigate or prosecute any alcohol or drug abuse patient.[facility] the event this information is protected by the Federal Confidentiality of Alcohol and Drug Abuse Patient Records regulations: The Federal rules restrict any use of the information to criminally investigate or prosecute any alcohol or drug abuse patient.[facility] the event this information is protected by the Federal Confidentiality of Alcohol and Drug Abuse Patient Records regulations: The Federal rules restrict any use of the information to criminally investigate or prosecute any alcohol or drug abuse patient.[facility] the event this information is protected by the Federal Confidentiality of Alcohol and Drug Abuse Patient Records regulations: The Federal rules restrict any use of the information to criminally investigate or prosecute any alcohol or drug abuse patient.[facility] the event this information is protected by the Federal Confidentiality of Alcohol and Drug Abuse Patient Records regulations: The Federal rules restrict any use of the information to criminally investigate or prosecute any alcohol or drug abuse patient.[facility] the event this information is protected by the Federal Confidentiality of Alcohol and Drug Abuse Patient Records regulations: The Federal rules restrict any use of the information to criminally investigate or prosecute any alcohol or drug abuse patient.[facility] the event this information is protected by the Federal Confidentiality of Alcohol and Drug Abuse Patient Records regulations: The Federal rules restrict any use of the information to criminally investigate or prosecute any alcohol or drug abuse patient.[facility] the event this information is protected by the Federal Confidentiality of Alcohol and Drug Abuse Patient Records regulations: The Federal rules restrict any use of the information to criminally investigate or prosecute any alcohol or drug abuse patient.[facility] the event this information is protected by the Federal Confidentiality of Alcohol and Drug Abuse Patient Records regulations: The Federal rules restrict any use of the information to criminally investigate or prosecute any alcohol or drug abuse patient.[facility] the event this information is protected by the Federal Confidentiality of Alcohol and Drug Abuse Patient Records regulations: The Federal rules restrict any use of the information to criminally investigate or prosecute any alcohol or drug abuse patient.[facility] the event this information is protected by the Federal Confidentiality of Alcohol and Drug Abuse Patient Records regulations: The Federal rules restrict any use of the information to criminally investigate or prosecute any alcohol or drug abuse patient.[facility] the event this information is protected by the Federal Confidentiality of Alcohol and Drug Abuse Patient Records regulations: The Federal rules restrict any use of the information to criminally investigate or prosecute any alcohol or drug abuse patient.[facility] Reason for Visit (unrecogniz ed section and content) Reason Comments Recheck Reason Comments Appointment Reason Comments Results US ABD Aorta Reason Comments Appointment Cancelled Reason Comments Prescription Refills Reason Comments Abdominal Pain Reason Onset Date Comments Virtualist 01/04/2022 Reason Comments Radiology US Specialty Diagnoses / Procedures Referred By Contac t Referred To Contact US IMAGING Diagnoses RUQ pain Procedures US ABD RT UPPER QUADRANT US ABDOMINAL REAL TIME W/IMAGE LIMITED Julia Romero, JUDY.[employer] FEEDER [address] [place] [address] Us Imaging Referral ID Status Reason Start Date Expiration Date V isits Requested Visits Authorized [id number] Closed Auto-Generate d Referral 01/05/2022 02/04/2023 1 1 Reason Comments Results labs and ultrasound Reason Comments Results Reason Comments F/U 6 months Reason Comments outreach Reason Onset Date Comments Refill Request Refill Request 03/24/2022 Reason Onset Date Comments Population Health Navigation Outreach 07/14/2022 [facility] [place] [facility] Reason Comments Orders Reason Comments Post Dc Program Call - Needs Attn Reason Comments lower left abdominal pain - see triage n ote 08/20/2022 Reason Comments Blurred Vision Both Eyes Intermittently Left eye then goes to the right eye. Visual Changes Both Eyes Difficulty Reading Both Eyes Uses over t he counter readers Floaters Both Eyes Only one, longstandi ng Glare Driving at night Eye Itching Both Eyes Intermittently Specialty Diagnoses / Procedures Referred By Contac t Referred To Contact Ophthalmology Diagnoses Vision disturbance Procedures CONSULT TO OPHTHALMOLOGY OFFICE/OUTPATIENT [facility] MDM 60-74 MINUTES Mikhail Green MD [address] [place] [address] Referral ID Status Reason Start Date Expiration Date V isits Requested Visits Authorized [id number] Closed PCP Requested Referral 08/21/2022 08/21/2023 1 1 Reason Comments bowel problem Reason Comments Patient Update Reason Comments Patient Question Reason Comments 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 Reason Comments Prescription Problem Reason Comments Established Patient Reason Comments Established Patient Reason Comments Consult Care Teams (unrecognized sec tion and content) 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 Start Date End Date Mikhail Green MD [address] [place] [address] PCP - General Internal Medicine 08/31/15 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 Start Date End Date Mikhail Green MD [address] [place] [address] PCP - General Internal Medicine 08/31/15 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 Start Date End Date Mikhail Green MD [address] [place] [address] PCP - General Internal Medicine 08/31/15 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 Start Date End Date Mikhail Green MD [address] [place] [address] PCP - General Internal Medicine 08/31/15 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 Start Date End Date Mikhail Green MD [address] [place] [address] PCP - General Internal Medicine 08/31/15 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 Start Date End Date Mikhial Green MD [address] [place] [address] PCP - General Internal Medicine 08/31/15 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 Start Date End Date Mikhail Green MD [address] [place] [address] PCP - General Internal Medicine 08/31/15 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 Start Date End Date Mikhail Green MD [address] [place] [address] PCP - General Internal Medicine 08/31/15 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 Start Date End Date Mikhail Green MD [address] [place] [address] PCP - General Internal Medicine 08/31/15 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 Start Date End Date Mikhail Green MD [address] [place] [address] PCP - General Internal Medicine 08/31/15 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 Emily Roland MD Family Provider Active Dr. Mikhial Green MD Primary Care Provider Active Team Status: Inactive Member Role Status Dates Dr. Mikhail Green MD Primary Care Provider, Refer ring Provider Active Dr. Patrick Mckinley MD Attending Provider Active Team Status: Inactive Member Role Status Dates Dr. Mikhail Green MD Primary Care Provider Active Dr. Patrick Mckinley MD Attending Provider Active Team Status: Active Member Role Status Dates Dr. Mikhail Green MD Primary Care Provider Active Dr. Patrick Mckinley MD Attending Provider Active Team Status: Active Member Role Status Dates Dr. Mikhail Green MD Primary Care Provider Active Paige Granger Attending Provider Active Team Status: Inactive Member Role Status Dates Dr. Mikhail Green MD Primary Care Provider Active Dr. 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 Emily oRland MD Family Provider Active Dr. Blaise Hall MD Primary Care Provider Active Team Status: Inactive Member Role Status Dates Dr. Blaise Hall MD Primary Care Provider, Attendi ng Provider Active Team Status: Inactive Member Role Status Dates Dr. 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 Mikhail Green MD Referring Provider Active Shaun Lang PIT SUPERVISOR, PIT SUPERVISOR-C Attending Provider Active Dr. Blaise Hall MD Primary Care Provider Active Team Status: Inactive Member Role Status Dates Dr. 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 Blaise Hall MD Primary Care Provider Active Team Status: Inactive Member Role Status Dates Dr. Blaise Hall MD Primary Care Provider Active Start: October 26, 2024 End: October 26, 2024 Dr. Blaise Hall MD Referring Provider Active Start: October 26, 2024 End: October 26, 2024 Dr. Patrick Mckinley MD Attending Provider Active S tart: October 26, 2024 End: October 26, 2024 Team Status: Inactive Member Role Status Dates Dr. Blaise Hall MD Primary Care Provider Active Start: December 05, 2024 End: December 05, 2024 Dr. Patrick Mckinley MD Attending Provider Active S tart: December 05, 2024 End: December 05, 2024 Dr. Patrick Mckinley MD Referring Provider Active S tart: December 05, 2024 End: December 05, 2024 Team Status: Active Member Role Status Dates Dr. Blaise Hall MD Primary Care Provider Active Start: December 05, 2024 Dr. Patrick Mckinley MD Attending Provider Active S tart: December 05, 2024 Team Status: Active Member Role Status Dates Dr. 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 This clinical summary was aggregated from multiple sources. Caution should be exercised in using it in the provision of clinical care. This summary normalizes information from multiple sources, and as a consequence, information in this document may materially change the coding, format and clinical context of patient data. In addition, data may be omitted in some cases. CLINICAL DECISIONS SHOULD BE BASED ON THE PRIMARY CLINICAL RECORDS. [employer] provides no warranty or guarantee of the accuracy or completeness of information in this document.
--- NOTE | 2025-05-27 21:44 | CT_ITS ---
PROCEDURE: ABDOMEN/PELVIS W IV CONT ONLY 05/27/2025 REASON FOR EXAM: BACK PAIN , HX OF AAA REPAIR TECHNIQUE: Procedure Code: [id number] Modality: CT Procedure: ABDOMEN/PELVIS W IV CONT ONLY Coronal and Sagittal reconstruction series were provided. CONTRAST: Isovue 370 VOLUME: 99 mL One or more dose reduction techniques were used (e.g., Automated exposure control, adjustment of the mA and/or kV according to patient size, use of iterative reconstruction technique. RADIATION DOSE SUMMARY: CTDlvol: 19.14 mGy DLP: 1030.78 mGycm COMPARISON: None FINDINGS: The liver is normal in size. Tiny right lobe segment 6 hypodense focus is seen that is too small to characterize probably a tiny cyst. No intra- or extrahepatic biliary duct dilatation is identified. The hepatic vasculature is patent. The gallbladder fossa is unremarkable. The spleen, pancreas, and adrenal glands are unremarkable. The kidneys are normal in size and attenuation with lobulated contour. There is no hydronephrosis . No renal calculi are identified. The ureters are normal in caliber and no ureteral calculi are seen. No focal or diffuse bowel wall thickening or bowel obstruction is identified. The appendix is unremarkable. There is mild gastric circumferential wall thickening seen suggesting gastritis, recommend clinical correlation. Fecal loading is seen in the colon suggesting constipation. The abdominal aorta and its branches demonstrate atheromatous calcification and mural thrombi, ectatic infrarenal segment measures 3 cm in diameter, surrounding surgical clips and fat stranding are noted. The inferior vena cava appears unremarkable. 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 Signs of mesenteric panniculitis. No free intraperitoneal fluid, fluid collection or free air is identified. Small fat-containing umbilical hernia is noted. The urinary bladder is partially distended and show no stones or mass. No pelvic mass seen. No aggressive-appearing osseous lesions are identified. Degenerative changes are present in the spine. The included lower chest cuts show no gross abnormalities. CT/Abdomen/Pelvis W IV Cont ONLY IMPRESSION: No acute abnormalities seen. Mild gastric circumferential wall thickening seen suggesting gastritis, recomme nd clinical correlation. Abdominal aorta atheromatous calcifications and mural thrombi, ectatic infraren al segment measures 3 cm in diameter, surrounding surgical clips and fat stranding are noted. Recommend clinical correlation. 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 Small fat-containing umbilical hernia. Signs of mesenteric panniculitis. Reading Location: [facility]
[2025-05-27 22:08] LABS: Anion Gap 10 (5-15); BUN 15 mg/dL (4-19); BUN/Creat Ratio 14.1 RATIO (10-20); Calcium,Total 9.0 mg/dL (7.6-11.0); Carbon Dioxide 23.1 mmol/L (21.0-32.0); Chloride 104 mmol/L (98-108); Estimated Creatinine Clearance 74.93 ml/min (50-250); Glucose 123 mg/dL (70-99); Potassium 4.1 mmol/L (3.3-5.1)
[2025-05-27 22:32] LABS: Mucous, Urine 0 SEEN /hpf (<or=2+); Red Blood Cells-Urine 0 SEEN /hpf (0-5); Squamous Epithelial Cells - UA 0 SEEN /hpf (0-5)
[2025-05-27 22:34] LABS: Color, Urine Yellow (Yellow); Glucose, Dipstick Normal (Normal); Ketone-Dipstick Negative (Negative); Leukocyte Esterase-Dipstick Negative /ul (Negative); Nitrite-Dipstick Negative (Negative); Occult Blood-Urine Negative /ul (Negative); Protein-Dipstick Negative (Negative); Specific Gravity, Urine 1.005 (1.002-1.030); Urine Bilirubin Dipstick Negative (Negative)
[2025-05-27 22:53] VITALS: BP 166/84; PULSE 65; RESP 16; O2SAT 96
[2025-05-28] VITALS: O2SAT 95
[2025-05-28 01:16] VITALS: BP 133/81; PULSE 68; RESP 18; TEMP 36.6; O2SAT 98
== END 2025-05-28 01:18 | disposition home or self-care (01) ==
LOC: ED 21:32
PROVIDERS: Emergency Provider Emergency Medicine; PCP Internal Medicine; Visit Provider Emergency Medicine
DX: M54.9 Dorsalgia, unspecified (principal); I25.10 Atherosclerotic heart disease of native coronary artery without angina pectoris; G89.29 Other chronic pain; E78.5 Hyperlipidemia, unspecified; I10 Essential (primary) hypertension; Z87.891 Personal history of nicotine dependence
CPT/HCPCS: 74177; 80048; 81001; 85025; 96374; 96375; 99283; Q9967; A4216; J2405